=== PATIENT | female | born 1965 | race Caucasian/White ===

== ENCOUNTER 2019-07-13 10:38 | Inpatient (IN) ==
[2019-07-13] MEDS ORDERED: Naloxone 0.4 MG/ML INJ IVP PRN (14:13)
[2019-07-13] MEDS ORDERED: Ondansetron 4 MG/2 ML VIAL IVP PRN (14:13)
--- NOTE | 2019-07-13 14:41 | Internal Med History&Physical ---
Date of Encounter: 07/13/19 Time of Encounter: 14:36 Internal Medicine - H&P: HPI Chief complaint: FALL due to Gerneralized weakness with right elli fracture History of present illness: Ms. Kasper is a 53 year old female with history of bipolar disorder and schizophrenia [facility] because of mechanical fall resulting in fracture of right ankle. Patient is poor historian however the patient states that today the morning she went to the bathroom and she got dizziness and felt weak , lost her balance and fell on right foot. Patient denies chest pain or shortness of breath Patient has no history of coronary artery disease diabetes or high blood pressure. X-ray of ankle showed dry malleolar fracture and malalignment of the ankle mortise Initial labs are normal except platelets count 128 and INR 1.1 Initial troponin negative Patient denies hitting Head. Past Med Surg Social Fam HX - Past Medical History Medical history: asthma, COPD, renal disease, other Additional medical history: gait disturbance Psychiatric history: anxiety, bipolar, depression, PTSD, schizophrenia, other - Past Surgical History Surgical History: appendectomy, breast surgery (Left breast biopsy), cataract (Right), hip replacement (Right), orthopedic, other (Left wrist surgery), other Additional surgical history: R HIP SX S/P FALL. R EYE CATARACT SX. SKIN GRAFT. L BREAST BX. EGD/COLONOSCOPY 06/13/15. TUBAL - Social History Smoking Status: Never smoker Smokeless Tobacco Status: No Alcohol use: none Drug use: none Internal Medicine - H&P: Meds Benztropine [Cogentin] 0.5 mg PO BID 01/03/19 [History] Calcium Carbonate/Vitamin D3 [Oyster Shell Calcium-Vit D Tab] 1 each PO QAM 01/03/19 [History] Citalopram [CeleXA] 20 mg PO DAILY 01/03/19 [History] Divalproex Sodium 500 mg PO BID 01/03/19 [History] Docusate Sodium [Dulcolax Stool Softener] 100 mg PO QAM 01/03/19 [History] Haloperidol [Haldol] 10 mg PO BID PRN 01/03/19 [History] Loratadine [Claritin] 10 mg PO QAM 01/03/19 [History] RisperiDONE [Risperdal] 3 mg PO BID 01/03/19 [History] Ascorbate Calcium [Vitamin C] 500 mg PO DAILY 07/13/19 [History] Ferrous Sulfate [High Potency Iron] 65 mg PO 07/13/19 [History] Haloperidol 5 mg PO QAM 07/13/19 [History] Haloperidol 10 mg PO HS 07/13/19 [History] Hydrochlorothiazide [Microzide] 12.5 mg PO QMWF 07/13/19 [History] Omeprazole [PriLOSEC] 20 mg PO DAILY 07/13/19 [History] Prazosin HCl [Minipress] 2 mg PO HS 07/13/19 [History] Tizanidine HCl [Zanaflex] 4 mg PO TID 07/13/19 [History] Allergy/AdvReac Type Severity Reaction Status Date / Time aspirin [ASA] Allergy Rash Verified 07/13/19 09:02 ibuprofen [From Advil] Allergy Rash Verified 07/13/19 09:02 Penicillins [PCN] Allergy Rash Verified 07/13/19 09:02 All Systems PM: A 10-system review of systems was performed and is negative for pertinent findings except as documented above in the HPI. Review of systems: Review of system: Regarding cardiology respiratory GI endocrine hematology musculoskeletal all negative except for multiple was mentioned in the H&P - Constitutional Exam: Physical examination: Gen.: Patient is alert and oriented, not in respiratory distress or pain HEENT: perrla , EOMI, no thyroid gland enlargement, no neck mass, supple neck Heart: S1 and S2 chriss, normal sinus rhythm, no cardiac murmur no gallop rhythm Chest: Air entry equal bilaterally, clear chest, no wheezing, crackles or crepitation Abdomen: Soft nontender nondistended positive bowel sounds, Extremities: No pitting edema, peripheral pulses palpable, no cyanosis tenderness Neuro: Able to move limbs, no focal neurological deficit. - Other Additional findings: Physical examination: Gen.: Patient is alert and oriented, not in respiratory distress or pain HEENT: perrla , EOMI, no thyroid gland enlargement, no neck mass, supple neck Heart: S1 and S2 chriss, normal sinus rhythm, no cardiac murmur no gallop rhythm Chest: Air entry equal bilaterally, clear chest, no wheezing, crackles or crepitation Abdomen: Soft nontender nondistended positive bowel sounds, Extremities: No pitting edema, peripheral pulses palpable, no cyanosis tenderness Neuro: Able to move limbs, no focal neurological deficit - Assessment and Plan (1) Trimalleolar fracture of ankle, closed Current Visit: No Status: Acute Assessment and plan: Secondary to fall due to generalized weakness Patient denies loss of consciousness Patient has no previous history of coronary artery disease or diabetes Dr. Yarbrough aware of the patient Patient had moderate to high intraoperative risk, check ekg , on telemetry Patient history of bipolar and schizophrenia Noted to have soft blood pressure Check orthostatic blood pressure Continue IV fluid DVT prophylaxis and GI prophylaxis Bowel regimen pain Medication pt/ot once cleared by Phys Ther need SNF do medical recon once confirmed by pharmacist Qualifiers: Encounter type: initial encounter Laterality: right Qualified Code(s): S82.851A - Displaced trimalleolar fracture of right lower leg, initial encounter for closed fracture - Time Spent With Patient Total time spent is greater than 50% in coordination of care (as documented) at patient's floor/unit and/or counseling patient:
[2019-07-13 15:17] LABS: Basophils % 0.2 %; Eosinophils % 0.2 %; Hematocrit 41.4 % (35.3-44.9); Hemoglobin 13.7 g/dL (11.5-15.4); Immature Granulocytes % 0.2 % (0-4); Lymphocytes # 1.6 K/mcL (0.6-4.6); Lymphocytes % 18.4 %; Mean Corpuscular HGB Conc 33.1 g/dL (31.6-35.5); Mean Corpuscular Hemoglobin 33.7 pg (28.0-33.3); Mean Platelet Volume 10.4 fL (9.4-12.4); Monocytes % 11.1 %; Neutrophils # 6.2 K/mcL (1.6-8.9); Platelet Count 133 K/mcL (140-400); Red Blood Count 4.06 M/mcL (3.82-4.97); Red Cell Distribution Width 12.4 % (11.5-14.5); Segmented Neutrophils % 69.9 %; White Blood Count 8.8 K/mcL (4.3-11.1)
[2019-07-13 15:38] LABS: Alanine Aminotransferase 6 Units/L (7-52); Albumin 3.3 g/dL (3.5-5.7); Albumin/Globulin Ratio 1.5 (1.1-2.2); Alkaline Phosphatase 60 Units/L (34-104); Aspartate Amino Transferase 10 Units/L (13-39); BUN/Creatinine Ratio 20 (6-26); Bilirubin,Total 0.6 mg/dL (0.3-1.0); Blood Urea Nitrogen 14 mg/dL (6-20); Carbon Dioxide 28 mEq/L (23-29); Chloride 107 mEq/L (98-107); Cholesterol 136 mg/dL (< 200); Globulin 2.2 g/dL (2.4-3.5); Glucose 106 mg/dL (70-105); HDL Cholesterol 46 mg/dL (40-59); LDL Cholesterol,Calculated 74 mg/dL (0-99); Magnesium 1.6 mg/dL (1.6-2.6); Osmolality,Calculated 289 (280-300); Potassium 3.7 mEq/L (3.5-5.1); Sodium 139 mEq/L (136-145); Total Protein 5.5 g/dL (6.4-8.9); Triglycerides 80 mg/dL (< 150); eGFR For African Americans > 60 (> 60); eGFR For Non-African Americans > 60 (> 60)
--- NOTE | 2019-07-13 16:20 | Podiatry Consult Note ---
Date of Encounter: 07/13/19 Time of Encounter: 15:50 Assessment and Plan (1) Trimalleolar fracture of ankle, closed Current visit: No Status: Acute Assessment: -Ecchymosis and edema noted right ankle -PT/DP pulses per Doppler -Movement of toes noted -No tenting or blistering noted -Right ankle x-ray showed evidence of a trimalleolar fracture and malalignment of the ankle mortise seen on on the lateral view Plan: -Keep extremity elevated with heel off of bed at all times -CT right ankle ordered per Dr. Moon -EKG pending -Will discuss with attending to determine if cardiac clearance is needed prior to surgery -If cleared OR tomorrow or next day with Dr. Moon -NPO after midnight The posterior splint was removed to check for adequate circulation. Pulses were obtained with Doppler and splint reapplied using cast padding, stockinette, posterior splint, cast padding, and [place]. Patient tolerated well. Patient and chlorinator operator instructed to report any pain without relief of medication, swelling, or discoloration of toes. Qualifiers: Encounter type: initial encounter Laterality: right Qualified Code(s): S82.851A - Displaced trimalleolar fracture of right lower leg, initial encounter for closed fracture History of Present Illness HPI: Ms. Kasper is a 53 year old female who presents to the hospital for a right ankle fracture status post fall during the night. Patient was transferred from [facility] Emergency Room (ER). Patient does have a past medical history of asthma, COPD, renal disease, schizophrenia, and bipolar. She is a resident in a senior living. Patient reports she went to the restroom last night and became lightheaded and dizzy when returning to bed and she fell. She denies any loss of consciousness, chest pain, or shortness of breath. She did complain of pain right ankle and her chlorinator operator this am noticed the swelling and bruising in her ankle and had her go to the ER for evaluation. A right ankle x-ray was taken and showed evidence of a trimalleolar fracture and malalignment of the ankle mortise seen on on the lateral view. Podiatry was consulted due to the fracture of the right ankle. Patient denies any history of tobacco, alcohol, or illicit drug use. Past Med Surg Social Fam HX - Past Medical History Medical history: asthma, COPD, renal disease, other Additional medical history: gait disturbance Psychiatric history: anxiety, bipolar, depression, PTSD, schizophrenia, other - Past Surgical History Surgical History: appendectomy, breast surgery (Left breast biopsy), cataract (Right), hip replacement (Right), orthopedic, other (Left wrist surgery), other Additional surgical history: R HIP SX S/P FALL. R EYE CATARACT SX. SKIN GRAFT. L BREAST BX. EGD/COLONOSCOPY 06/13/15. TUBAL - Social History Smoking Status: Never smoker Smokeless Tobacco Status: No Alcohol use: none Drug use: none Medications and Allergies Benztropine [Cogentin] 0.5 mg PO BID 01/03/19 [History] Calcium Carbonate/Vitamin D3 [Oyster Shell Calcium-Vit D Tab] 1 each PO QAM 01/03/19 [History] Citalopram [CeleXA] 20 mg PO DAILY 01/03/19 [History] Docusate Sodium [Dulcolax Stool Softener] 100 mg PO QAM 01/03/19 [History] Haloperidol [Haldol] 10 mg PO BID PRN 01/03/19 [History] Loratadine [Claritin] 10 mg PO QAM 01/03/19 [History] RisperiDONE [Risperdal] 3 mg PO BID 01/03/19 [History] Ascorbate Calcium [Vitamin C] 500 mg PO DAILY 07/13/19 [History] Divalproex Sodium [Depakote] 500 mg PO BID 07/13/19 [History] Ferrous Sulfate 325 mg PO DAILY 07/13/19 [History] Haloperidol 5 mg PO QAM 07/13/19 [History] Haloperidol 10 mg PO HS 07/13/19 [History] Hydrochlorothiazide [Microzide] 12.5 mg PO QMWF 07/13/19 [History] OLANZapine [Zyprexa] 10 mg PO DAILY PRN 07/13/19 [History] Omeprazole [PriLOSEC] 20 mg PO DAILY 07/13/19 [History] Prazosin HCl [Minipress] 2 mg PO HS 07/13/19 [History] Tizanidine HCl [Zanaflex] 4 mg PO TID 07/13/19 [History] traZODone [TraZODone] 100 mg PO HS PRN 07/13/19 [History] Allergy/AdvReac Type Severity Reaction Status Date / Time aspirin [ASA] Allergy Rash Verified 07/13/19 09:02 ibuprofen [From Advil] Allergy Rash Verified 07/13/19 09:02 Penicillins [PCN] Allergy Rash Verified 07/13/19 09:02 All Systems Reviewed: The remainder of the systems were reviewed and are negative Review of systems: As per HPI - Cardiovascular Cardiovascular: no chest pain, no dyspnea - Respiratory Respiratory: no cough, no dyspnea, no dyspnea on exertion Physical Exam - Constitutional Vitals: Temp Pulse Resp BP Pulse Ox 97.9 F 84 16 98/67 94 07/13/19 15:40 07/13/19 15:40 07/13/19 15:40 07/13/19 15:44 07/13/19 15:40 Exam: Constitutional: Alert and oriented x 3, no acute distress noted, well nourished female Vascular: DP/PT pulse obtained with Doppler, skin warm from tibia to toes, cap refill less than 3 seconds Neurological: Sensation intact, normal plantar reflex Dermatological: Ecchymosis and edema noted right lower extremity, ankle, and foot. No tenting noted. No blistering noted. No open areas noted. Musculoskeletal: Movement of toes noted but sluggish due to pain, normal muscle tone Results - Labs Result Diagrams: 07/13/19 14:38 07/13/19 14:38 Labs: Abnormal lab results MCV 102.0 fL (83.0-100.0) H 07/13/19 14:38 MCH 33.7 pg (28.0-33.3) H 07/13/19 14:38 Plt Count 133 K/mcL (140-400) L 07/13/19 14:38 Glucose 106 mg/dL (70-105) H 07/13/19 14:38 AST 10 Units/L (13-39) L 07/13/19 14:38 ALT 6 Units/L (7-52) L 07/13/19 14:38 Serum Total Protein 5.5 g/dL (6.4-8.9) L 07/13/19 14:38 Albumin 3.3 g/dL (3.5-5.7) L 07/13/19 14:38 Globulin 2.2 g/dL (2.4-3.5) L 07/13/19 14:38 H & H 07/13/19 Range/Units 14:38 Hgb 13.7 (11.5-15.4) g/dL Hct 41.4 (35.3-44.9) % All other labs normal. Consult Discharge Plan - Plan Referrals: Vinicio Craig MD [Primary Care Provider] -
[2019-07-13] MEDS: 0.9 % Sodium Chloride 1,000 ML IVC SCH (17:10)
[2019-07-13] MEDS: Acetaminophen 325 MG TABLET PO PRN (22:06)
[2019-07-14] MEDS: *HR* Enoxaparin 40 MG/0.4 ML SYRINGE SQ SCH (05:51)
[2019-07-14] MEDS: 0.9 % Sodium Chloride 1,000 ML IVC SCH (05:55)
--- NOTE | 2019-07-14 10:46 | Internal Med Progress Note ---
Hospitalist Progress Note - Encounter Date of Encounter: 07/14/19 Time of Encounter: 10:43 - Subjective Interval History: She was seen and examined today at bedside. Patient reports that she is doing well. Patient complaining of on and off right ankle pain. By CT patient found to have a fracture on her right ankle. Podiatry CONSULT. PODIATRY CONSIDERING POSSIBLE SURGERY. WE WILL CONTINUE TO FOLLOW PODIATRY RECOMMENDATION. - Exam Vitals: Temp Pulse Resp BP Pulse Ox 98.5 F 78 16 108/63 94 07/14/19 06:43 07/14/19 06:43 07/14/19 06:43 07/14/19 06:43 07/14/19 06:43 Exam: Physical examination: Gen.: Patient is alert and oriented, not in respiratory distress or pain HEENT: perrla , EOMI, no thyroid gland enlargement, no neck mass, supple neck Heart: S1 and S2 chriss, normal sinus rhythm, no cardiac murmur no gallop rhythm Chest: Air entry equal bilaterally, clear chest, no wheezing, crackles or crepitation Abdomen: Soft nontender nondistended positive bowel sounds, Extremities: Dressing properly placed on the right ankle. Sensation and capillary refill are within normal limits distal to the joint. Patient is able to move right toes. Neuro: Able to move limbs, no focal neurological deficit. - Assessment and Plan (1) Trimalleolar fracture of ankle, closed Current Visit: No Status: Acute Assessment and Plan: Patient presented to the hospital status post mechanical fall. Upon CT patient found to have trimalleolar fracture of right ankle closed. Podiatry CONSULT. CONTINUE PAIN MANAGEMENT. WE WILL FOLLOW PODIATRY RECOMMENDATION REGARDING THE SURGERY. WE WILL CONTINUE TO MONITOR PATIENT. - Time Spent with Patient Total time spent is greater than 50% in coordination of care (as documented) at patient's floor/unit and/or counseling patient: 25 - 35 minutes Plan of Care Discussed with: patient Internal Medicine: Result - Labs CBC & Chem 7: 07/13/19 14:38 07/13/19 14:38 Labs: Short CBC 07/13/19 Range/Units 14:38 WBC 8.8 (4.3-11.1) K/mcL Hgb 13.7 (11.5-15.4) g/dL Hct 41.4 (35.3-44.9) % Plt Count 133 L (140-400) K/mcL Neutrophils # 6.2 (1.6-8.9) K/mcL BMP 07/13/19 14:38 Sodium 139 Potassium 3.7 Chloride 107 Carbon Dioxide 28 BUN 14 Creatinine 0.71 Glucose 106 H Calcium 9.0 Cardiac Enzymes 07/13/19 Range/Units 19:07 Troponin I < 0.03 (< 0.04) ng/mL Liver Function 07/13/19 Range/Units 14:38 Total Bilirubin 0.6 (0.3-1.0) mg/dL AST 10 L (13-39) Units/L ALT 6 L (7-52) Units/L Alkaline Phosphatase 60 (34-104) Units/L Albumin 3.3 L (3.5-5.7) g/dL - Impressions Impressions Ankle CT 07/13/19 15:50 IMPRESSION: Trimalleolar fractures with ligamentous injury. D/ / 07/13/2019 17:01:31 Forrest Al MD / aldair Interpreting Provider: Forrest Al MD Consult Discharge Plan - Plan Referrals: Vinicio Craig MD [Primary Care Provider] - (1) Trimalleolar fracture of ankle, closed Qualifiers: Encounter type: initial encounter Laterality: right Qualified Code(s): S82.851A - Displaced trimalleolar fracture of right lower leg, initial encounter for closed fracture
[2019-07-14] MEDS: Acetaminophen 325 MG TABLET PO PRN (11:45)
--- NOTE | 2019-07-14 12:48 | Podiatry Progress Note ---
Date of Encounter: 07/14/19 Time of Encounter: 11:15 - Assessment and Plan (1) Trimalleolar fracture of ankle, closed Current Visit: No Status: Acute Assessment: -Posterior splint dry and intact, no strike through noted -Movement of toes noted -Right ankle x-ray showed evidence of a trimalleolar fracture and malalignment of the ankle mortise seen on on the lateral view -CT shows trimalleolar fracture with ligamentous injury Plan: -Keep extremity elevated with heel off of bed at all times -Dr. Moon to confirm clearance for surgery tomorrow -ORIF tomorrow with Dr. Moon -NPO after midnight -Nature of the procedure, risks versus benefits, potential complications, consequences of surgery, and condition discussed. All questions and concerns addressed. Consent signed and placed in chart. -Will continue to monitor Qualifiers: Encounter type: initial encounter Laterality: right Qualified Code(s): S82.851A - Displaced trimalleolar fracture of right lower leg, initial encounter for closed fracture Subjective Interval history: Patient is alert and oriented x 3, no acute distress noted. Patient report right lower extremity pain rates as 7, but states is tolerable. She denies any chest pain, shortness of breath, or calf pain. She denies any fever, chills, n/v/d. Objective - Vital Signs Vital Signs: Vital Signs Temp Pulse Resp BP BP BP BP 07/14/19 11:10 98.1 F 82 18 134/75 07/14/19 06:43 98.5 F 78 16 108/63 07/14/19 03:14 99.1 F 73 16 97/64 07/13/19 23:40 98.3 F 92 15 106/55 07/13/19 19:14 98.3 F 98 15 119/79 07/13/19 15:44 98/67 95/71 92/65 07/13/19 15:40 97.9 F 84 16 113/75 Pulse Ox 07/14/19 11:10 95 07/14/19 06:43 94 07/14/19 03:14 95 07/13/19 23:40 92 07/13/19 19:14 93 07/13/19 15:44 07/13/19 15:40 94 Intake and Output 07/13/19 07/14/19 07/14/19 23:59 07:59 15:59 Intake Total 0 / 0 1000 / 1400 400 / 1400 Output Total 0 / 0 Balance 0 / 0 1000 / 1400 400 / 1400 Intake: IV Fluids 1000 / 1400 400 / 1400 0.9 % Sodium Chloride 1,000 ML 1000 / 1400 400 / 1400 @ 75 mls/hr IVC .[id number] MJ Rx #:[id number] Oral 0 / 0 0 / 0 Output: Urine 0 / 0 Other: # Urine Diapers 0 Weight 95.7 kg Blood Glucose* 113 92 93 Patient Weight 07/14/19 23:59 Weight 95.7 kg - Exam Exam: Constitutional: Alert and oriented x 3, no acute distress noted Vascular: Cap refill less than 3 seconds to exposed digits, no swelling above or below splint, skin warm Constitutional: Posterior splint dry and intact, no strike through noted Neurological: Sensation intact Musculoskeletal: Movement of toes noted - Lab Result Diagrams: 07/13/19 14:38 07/13/19 14:38 Labs: Abnormal lab results MCV 102.0 fL (83.0-100.0) H 07/13/19 14:38 MCH 33.7 pg (28.0-33.3) H 07/13/19 14:38 Plt Count 133 K/mcL (140-400) L 07/13/19 14:38 Glucose 106 mg/dL (70-105) H 07/13/19 14:38 POC Glucose 113 mg/dL (70-99) H 07/13/19 17:53 AST 10 Units/L (13-39) L 07/13/19 14:38 ALT 6 Units/L (7-52) L 07/13/19 14:38 Serum Total Protein 5.5 g/dL (6.4-8.9) L 07/13/19 14:38 Albumin 3.3 g/dL (3.5-5.7) L 07/13/19 14:38 Globulin 2.2 g/dL (2.4-3.5) L 07/13/19 14:38 Consult Discharge Plan - Plan Referrals: Vinicio Craig MD [Primary Care Provider] -
[2019-07-14 13:12] LABS: Bilirubin,Urine Small (Negative); Blood,Urine Negative (Negative); Clarity,Urine Clear (Clear); Color,Urine Dark Yellow (Yellow); Glucose,Urine (UA) Normal (Normal); Ketones,Urine 15 mg/dL (Negative); Leukocyte Esterase,Urine Small (Negative); Nitrite,Urine Negative (Negative); Protein,Urine Trace mg/dL (Neg-Trace); Specific Gravity,Urine > 1.030 (1.010-1.025); Urobilinogen,Urine Normal (Normal)
[2019-07-14 13:14] LABS: Hyaline Casts,Urine None Seen per lpf (None-Few); Squamous Epithelial Cell,Urine Many per lpf (None-Few)
[2019-07-14 14:20] LABS: Bacteria,Urine Few per hpf (None-Few)
[2019-07-14] MEDS ORDERED: traZODone 50 MG TABLET PO PRN (14:26)
[2019-07-14] MEDS ORDERED: Morphine Sulfate 2 MG/ML SYRINGE IVP PRN (15:22)
[2019-07-14] MEDS ORDERED: *HR* OxyCODONE Immed Rel 5 MG TABLET PO PRN (15:35)
--- NOTE | 2019-07-14 16:33 | Electrocardiograph Report ---
[place] [id number] Test Date: 2019-07-13 Pat Name: Kay Kasper Department: 115 Room: 3A32 Gender: F Direct Sales Representative: : [id number] Requested By: Riley Salter Order Number: [id number] Reading MD: Andrés Pavon Measurements Intervals Starbuck Rate: 87 P: 30 CO: 143 QRS: 5 QRSD: 122 T: -5 QT: 397 QTc: 442 Interpretive Statements SINUS RHYTHM INDETERMINATE AXIS RIGHT BUNDLE BRANCH BLOCK Electronically Signed On 07-14-2019 16:31:30 EDT by Andrés Pavon
--- NOTE | 2019-07-14 19:01 | Anesthesia Evaluation PreOp ---
Date of Encounter: 07/14/19 Time of Encounter: 20:15 - Past History Planned Operation: ORIF R-foot Cardiac History: Denies any Significant Hx Pulmonary History: Asthma, COPD BILINGUAL SALES REPRESENTATIVE History: Other (BiPolar disorder & Schizophrenia. PTSD. Mild MRDD??) Other Medical History: Renal, Other (Tri-malleolar ankle Fx) Anesthesia History: No Prior Anesthetic Complications, Past Anesthesia (Appy, L- breast Bx, R-cataract, R-Hip replacmeent, L-wrist surgery, EGD/Colon, Tubal) Alcohol Use: none Drug use: none Medications and Allergies Benztropine [Cogentin] 0.5 mg PO BID 01/03/19 [History] Calcium Carbonate/Vitamin D3 [Oyster Shell Calcium-Vit D Tab] 1 each PO QAM 01/03/19 [History] Citalopram [CeleXA] 20 mg PO DAILY 01/03/19 [History] Docusate Sodium [Dulcolax Stool Softener] 100 mg PO QAM 01/03/19 [History] Haloperidol [Haldol] 5 mg PO BID PRN 01/03/19 [History] Loratadine [Claritin] 10 mg PO QAM 01/03/19 [History] RisperiDONE [Risperdal] 3 mg PO BID 01/03/19 [History] Ascorbate Calcium [Vitamin C] 500 mg PO DAILY 07/13/19 [History] Divalproex Sodium [Depakote] 500 mg PO BID 07/13/19 [History] Ferrous Sulfate 325 mg PO DAILY 07/13/19 [History] Haloperidol 5 mg PO QAM 07/13/19 [History] Haloperidol 10 mg PO HS 07/13/19 [History] Hydrochlorothiazide [Microzide] 12.5 mg PO MOWEFR 07/13/19 [History] OLANZapine [Zyprexa] 10 mg PO DAILY PRN 07/13/19 [History] Omeprazole [PriLOSEC] 20 mg PO DAILY 07/13/19 [History] Prazosin HCl [Minipress] 2 mg PO HS 07/13/19 [History] Tizanidine HCl [Zanaflex] 4 mg PO TID 07/13/19 [History] traZODone [TraZODone] 100 mg PO HS PRN 07/13/19 [History] Allergy/AdvReac Type Severity Reaction Status Date / Time aspirin [ASA] Allergy Rash Verified 07/13/19 09:02 ibuprofen [From Advil] Allergy Rash Verified 07/13/19 09:02 Penicillins [PCN] Allergy Rash Verified 07/13/19 09:02 - Meds/Allergy Pre-op Review Medications Reviewed: Yes Allergies Reviewed: Yes Beta Blockers on Current Med List: No Anesthesia Results - Labs 07/13/19 14:38 07/13/19 14:[address] 07/13/19 15:50 IMPRESSION: Trimalleolar fractures with ligamentous injury. D/ / 07/13/2019 17:01:31 Forrest Al MD / aldair Interpreting Provider: Forrest Al MD - Imaging EKG: report reviewed (87bpm - SINUS RHYTHM INDETERMINATE AXIS RIGHT BUNDLE BRANCH BLOCK Electronically Signed On 07-14-2019 16:31:30 EDT by Andrés Pavon) Anesthesia Exam Vital Signs Temp Pulse Resp BP Pulse Ox 07/14/19 19:01 98.2 F 85 18 93/61 95 07/14/19 15:41 98.2 F 102 18 132/63 96 07/14/19 11:10 98.1 F 82 18 134/75 95 07/14/19 06:43 98.5 F 78 16 108/63 94 07/14/19 03:14 99.1 F 73 16 97/64 95 07/13/19 23:40 98.3 F 92 15 106/55 92 07/13/19 19:14 98.3 F 98 15 119/79 93 Intake and Output 07/14/19 07/14/19 07/14/19 07:59 15:59 23:59 Intake Total 1000 / 2120 400 / 2120 720 / 2120 Output Total 450 / 450 Balance 1000 / 1670 -50 / 1670 720 / 1670 Intake: IV Fluids 1000 / 2000 400 / 2000 600 / 2000 0.9 % Sodium Chloride 1,000 ML 1000 / 2000 400 / 2000 600 / 2000 @ 75 mls/hr IVC .[id number] MJ Rx #:[id number] Oral 0 / 120 120 / 120 Output: Urine 450 / 450 Other: Meal Dinner Percent of Meal Consumed 30% # Urine Diapers 0 Weight 95.7 kg Blood Glucose* 92 93 Patient Weight 07/14/19 23:59 Weight 95.7 kg Height: 5'3" Weight: 210# BMI = 37 - HEENT Pupil (Motor): Pupils equal, EOMI Mallampati: III Teeth: Missing (multiple missing), Poor dentition (very poor dentition) Oral Opening: Greater than 3 - BILINGUAL SALES REPRESENTATIVE LOC: Oriented BILINGUAL SALES REPRESENTATIVE Motor: Normal RUE, Normal LUE, Normal LLE, Normal Face, Deficit RLE BILINGUAL SALES REPRESENTATIVE Sensory: Normal: RUE, LUE, LLE, Face, Deficit: RLE - Cardiac Rhythm: Regular Murmur: None - Pulmonary Breath Sounds: bilateral Clear Respiratory Effort: Symmetrical Anesthesia Assess/Plan ASA Score: 3 Level of consciousness: Cooperative, Oriented, Tranquil Anesthetic Plan: General, Regional Nerve Block Regional Nerve Block Plan: Popliteal ( - if OK w/McFerren) Monitoring Plan: Standard Monitors Recovery Plan: PACU Anes Supervising Prov Stmt: Pt seen/evaluated, R&B discussed, questions answered and consent obtained. Gela Dickens MD
[2019-07-14] MEDS: RisperiDAL 3 MG TABLET PO SCH (21:23)
[2019-07-14] MEDS: Divalproex (12 HR) 250 MG TABLET PO SCH (21:23)
[2019-07-15 05:06] LABS: Hematocrit 33.4 % (35.3-44.9); Immature Granulocytes % 0.6 % (0-4); Lymphocytes % 36.4 %; Mean Corpuscular HGB Conc 32.6 g/dL (31.6-35.5); Mean Corpuscular Hemoglobin 33.2 pg (28.0-33.3); Mean Corpuscular Volume 101.8 fL (83.0-100.0); Mean Platelet Volume 9.9 fL (9.4-12.4); Platelet Count 112 K/mcL (140-400); Red Blood Count 3.28 M/mcL (3.82-4.97); Red Cell Distribution Width 12.4 % (11.5-14.5); Segmented Neutrophils % 44.4 %; White Blood Count 5.1 K/mcL (4.3-11.1)
[2019-07-15 05:07] LABS: Basophils % 0.6 %; Eosinophils # 0.1 K/mcL (0.0-0.6); Eosinophils % 1.6 %; Hemoglobin 10.9 g/dL (11.5-15.4); Lymphocytes # 1.8 K/mcL (0.6-4.6); Monocytes # 0.8 K/mcL (0.0-1.3); Monocytes % 16.4 %; Neutrophils # 2.3 K/mcL (1.6-8.9)
[2019-07-15 05:24] LABS: BUN/Creatinine Ratio 17 (6-26); Blood Urea Nitrogen 10 mg/dL (6-20); Calcium 8.5 mg/dL (8.6-10.3); Carbon Dioxide 27 mEq/L (23-29); Chloride 110 mEq/L (98-107); Glucose 98 mg/dL (70-105); Osmolality,Calculated 293 (280-300); Potassium 3.5 mEq/L (3.5-5.1); Sodium 142 mEq/L (136-145); eGFR For African Americans > 60 (> 60); eGFR For Non-African Americans > 60 (> 60)
[2019-07-15] MEDS: *HR* Enoxaparin 40 MG/0.4 ML SYRINGE SQ SCH (06:25)
[2019-07-15] MEDS ORDERED: Ropivacaine/PF 0.5% 30 ML VIAL ONE (10:35)
[2019-07-15] MEDS ORDERED: ROPIVACAINE/PF/NS 0.25% 1 EACH SYRINGE INTRAART ONE (10:35)
[2019-07-15] MEDS ORDERED: Lidocaine -MPF 2% 2 ML VIAL ONE (10:49)
[2019-07-15] MEDS ORDERED: *HR* Propofol 200 MG/20 ML VIAL IVP ONE (10:49)
[2019-07-15] MEDS ORDERED: *HR* Midazolam HCl 2 MG/2 ML VIAL ONE (10:49)
[2019-07-15] MEDS ORDERED: *HR* FentaNYL (PF) 100 MCG/2 ML VIAL ONE ×2 (10:49→12:18)
[2019-07-15] MEDS ORDERED: Clindamycin 600 MG in D5% in Water 50 ML IVPB ONE (11:47)
[2019-07-15] MEDS ORDERED: Clindamycin 900 MG/50 ML 900 MG/50 ML IV.SOLN IVPB ONE (11:47)
--- NOTE | 2019-07-15 12:21 | Anesthesia Procedures ---
Date of Encounter: 07/15/19 Time of Encounter: 11:30 Procedures: Anesthesia - Nerve Block Procedure Date: 07/15/19 Time: 11:30 Allergies/Adv Reactions: ASA, ibuprofen, PCN Pre-op Diagnosis: R ankle fracture Surgical Procedure: ORIF R ankle Checklist: Correct Patient Identifier, Correct procedure, History checked Correct side: Right Blood Thinner: No Monitor Applied: EKG, BP, Pulse Oximetry Supplemental Oxygen via Nasal Cannula (L/min): 4 Sedation: Versed (mg): 2 Sedation: Fentanyl (mcg): 100 Indication: Post Op Analgesia Pre-op Neuro Deficits: No Block Type: Popliteal, Other (Adductor Canal N. block) Sterile Technique: Yes Ultrasound used: Yes Anatomy identified: Yes Visual spread of Local: Yes Neuro Stimulation: Yes Nerve Stimulator Range: 0.2 - 0.4 mA Blood on Needle Aspiration: No Smooth Injection of Local: Yes Pain with Injection of Local: No Prep: Chlorhexadine Needle: 21 x 100 mm Stimuplex Local: Ropivacaine (30mL of 0.5% ropi + 4mg dexamethasone for popliteal n. block; 20mL of 0.25% ropivicaine + 4mg dexamethasone for adductor canal n. block) Number of Attempts: 1 Complications: None/effective block Vitals: see patient holding vital signs notes
--- NOTE | 2019-07-15 12:31 | Internal Med Progress Note ---
Hospitalist Progress Note - Encounter Date of Encounter: 07/15/19 Time of Encounter: 12:29 - Subjective Interval History: Patient was seen and examined today. Patient reports intermittent pain in the right ankle. Patient has a trimalleolar fracture of right ankle status post mechanical fall. Podiatry consult. Patient will undergo surgery today for her trimalleolar fracture of right ankle. Patient has been nothing by mouth after midnight. We will continue to monitor. - Exam Vitals: Temp Pulse Resp BP Pulse Ox 98.4 F 83 15 123/65 100 07/15/19 07:48 07/15/19 11:38 07/15/19 07:48 07/15/19 11:38 07/15/19 11:38 Exam: Physical examination: Gen.: Patient is alert and oriented, not in respiratory distress or pain HEENT: perrla , EOMI, no thyroid gland enlargement, no neck mass, supple neck Heart: S1 and S2 chriss, normal sinus rhythm, no cardiac murmur no gallop rhythm Chest: Air entry equal bilaterally, clear chest, no wheezing, crackles or crepitation Abdomen: Soft nontender nondistended positive bowel sounds, Extremities: Dressing properly placed on the right ankle. Sensation and capillary refill are within normal limits distal to the joint. Patient is able to move right toes. Neuro: Able to move limbs, no focal neurological deficit. - Assessment and Plan (1) Trimalleolar fracture of ankle, closed Current Visit: No Status: Acute Assessment and Plan: Patient found to have trimalleolar fracture of right ankle status post mechan ical fall. Podiatry CONSULT. Patient is scheduled for ORIF of right ankle for trimalleolar fracture. We will continue to monitor after surgery. (2) COPD (chronic obstructive pulmonary disease) Current Visit: Yes Status: Acute Assessment and Plan: We will continue home medication. (3) Depression Current Visit: Yes Status: Acute Assessment and Plan: We will continue home medication. Patient denies any suicidal ideation and homicidal ideation. (4) Anemia Current Visit: No Status: Chronic Assessment and Plan: We will continue to monitor hemoglobin today 10.9 - Time Spent with Patient Total time spent is greater than 50% in coordination of care (as documented) at patient's floor/unit and/or counseling patient: 25 - 35 minutes Plan of Care Discussed with: patient Internal Medicine: Result - Labs CBC & Chem 7: 07/15/19 04:45 07/15/19 04:45 Labs: Short CBC 07/15/19 Range/Units 04:45 WBC 5.1 (4.3-11.1) K/mcL Hgb 10.9 L D (11.5-15.4) g/dL Hct 33.4 L (35.3-44.9) % Plt Count 112 L (140-400) K/mcL Neutrophils # 2.3 (1.6-8.9) K/mcL BMP 07/15/19 04:45 Sodium 142 Potassium 3.5 Chloride 110 H Carbon Dioxide 27 BUN 10 Creatinine 0.59 L Glucose 98 Calcium 8.5 L Urine 07/14/19 Range/Units 12:59 Urine Color Dark Yellow (Yellow) Urine Clarity Clear (Clear) Urine pH 6.0 (5.0-8.0) pH Units Ur Specific [place] > 1.030 H (1.010-1.025) Urine Protein Trace (Neg-Trace) mg/dL Urine Glucose (UA) Normal (Normal) mg/dL Consult Discharge Plan - Plan Referrals: Vinicio Craig MD [Primary Care Provider] - (1) Trimalleolar fracture of ankle, closed Qualifiers: Encounter type: initial encounter Laterality: right Qualified Code(s): S82.851A - Displaced trimalleolar fracture of right lower leg, initial encounter for closed fracture (2) COPD (chronic obstructive pulmonary disease) Qualifiers: COPD type: unspecified COPD Qualified Code(s): J44.9 - Chronic obstructive pulmonary disease, unspecified (4) Anemia Qualifiers: Anemia type: unspecified type Qualified Code(s): D64.9 - Anemia, unspecified
[2019-07-15] MEDS ORDERED: Dexamethasone 4 MG/ML VIAL ONE (12:57)
[2019-07-15] MEDS ORDERED: Ondansetron 4 MG/2 ML VIAL ONE (12:57)
[2019-07-15] MEDS ORDERED: Clindamycin 600 MG/50 ML 600 MG/50 ML IV.SOLN IVPB ONE ×2 (13:00→17:41)
--- NOTE | 2019-07-15 15:43 | Orthopedic Operative Note ---
Date of procedure: 07/15/19 Pre-op diagnosis: right trimalleolar ankle fracture, syndesmosis injury Post-op diagnosis: same Procedure: 07/15/19 15:42 1. Open reduction with internal fixation trimalleolar ankle fracture with repair of posterior malleolus, right ankle 2. Repair syndesmosis, right ankle Implants: Synthes 7 hole posterolateral fibula plate Synthes 3 hole hook plate Synthes 1cc DBM 2.7mm locking screw x5 2.7mm cortical screw x2 3.5mm cortical screw x6 3.5mm locking screw x2 4.0mm cannulated screw with washer x2 Complications: None Anesthesia: GETA, regional Surgeon: Joel Moon Was there an assistant county engineer present: No Estimated blood loss (cc): 25 Tourniquet Time (Minutes): 167 Specimen: None Condition: stable Disposition: floor Procedure in Detail: 07/15/19 17:03 INDICATIONS AND CONSENT Ms. Kasper is a 53 year old female who originally presented with right ankle pain and injury from a fall while walking in her detention. Radiographs and CT scan indicated a minimally displaced trimalleolar ankle fracture with comminution of the fibula and a large posterior malleolus fragment. Given the radiographic findings, surgical intervention was warranted. The patient elected to proceed with open reduction with internal fixation of the ankle fracture. We discussed the above procedures in detail. This included a discussion on the indications, contraindications, and possible complications including but not limited to: infection, non-healing wound, pain, swelling, bleeding, blood clots, heart complications, nerve injury, tendon injury vascular injury, loss of limb, loss of life, non-union, malunion, arthritis, hardware failure, and need for further surgery. We also reviewed the expected post operative course, including a discussion on the non-weightbearing status after this procedure. She related understanding of our discussion regarding this surgery. All questions were answered to her satisfaction, and a proper written informed consent was obtained, signed, and placed in the chart. No guarantees were given, stated or implied, as to the outcome of this procedure. PROCEDURE IN DETAIL The patient was seen in the pre-operative holding area by Anesthesia, where she was consented for General Anesthesia with adductor canal block. The popliteal fossa adductor canal blocks were performed under ultrasound guidance by Anesthesia in the pre-operative holding area. The patient was then brought back to the operative suite and placed on the operating room table in the lateral position. A sign-in was performed. General anesthesia was then initiated per Anesthesia protocol. A well-padded pneumatic right thigh tourniquet was then placed. Next, the right lower leg was scrubbed, prepped, and draped in the usual aseptic manner. A [place] Time-Out was performed, and all parties in the room agreed. Next, an Esmarch was used to exsanguinate the right foot. The pneumatic thigh tourniquet was inflated to 300 mmHg. Attention was then directed to the right posterolateral leg where an approximate 10 cm linear incision was made over the posterior aspect of the distal fibula and extending just distal to the tip of the lateral malleolus. Hematoma and signs of post-traumatic injury were evident. The hematoma was evacuated. The incision was carried down to the level of bone in anatomic layers, paying particular attention to protect and retract all vital neurovascular structures. With the incision down to bone, the fracture site was identified and noted to be a displaced and severely comminuted, spiral oblique fracture. A silva elevator was used to elevate the periosteum both proximal and distal to the fracture site prior to plate fixation. The wound was flushed with copious amounts of sterile saline. The fracture was reduced and stabilized utilizing point to point bone clamps. The fibula was held out to appropriate anatomic length, confirmed and verified under fluoroscopy. Two 2.7mm lag screws, by AO technique, were thrown obliquely and perpendicular to the fracture site of the largest of the fragments, one anterior to posterior and one posterior to anterior for appropriate compression and stability. Next a posterolateral fibula plate was placed for added stability across the fracture sites which was fixated using three 3.5mm cortical screws, two 3.5mm locking screws proximally, and five 2.7mm locking screws distally. Stability at the [facility] site was noted both clinically and under fluoroscopy with maintenance of reduction and religious of fibular length. There was a significant osseous defect from the comminution that was filled with 1cc of DBM. An additional 3.5mm cortical screw was then placed through an open hole at the level of the syndesmosis to further fixate the tibia-fibula due to the comminution at the level of the syndesmosis, indicating injury to the ligament. The tourniquet was released for 15 minutes and was re-inflated to 300mmHg. A reduction clamp was used to reduce the posterior malleolus fracture, then two 4.0mm cannulated screws with washers were placed from posterior to anterior to fixate the fragment. There was improvement in anatomic alignment of the ankle mortise on the anterior-posterior and lateral views of the ankle via fluoroscopy. Our attention was then directed to the medial malleolus where a curvilinear incision was made. The incision was carried deep to the level of bone paying careful attention to retract neurovascular and tendons. A 3 hole hook plate was then placed over the medial malleolus and fixated using two 3.5mm cortical screws proximal to the fracture drilled eccentrically to compress the fracture. Adequate reduction and hardware fixation was confirmed under fluoroscopy. Deltoid and syndesmosis stability was confirmed under fluoroscopy as the ankle joint was stressed with no widening appreciated. The wounds were then flushed with copious amounts of normal sterile saline. Next, deep and subcutaneous tissues were re-approximated using 2-0 Vicryl and 3-0 Vicryl and the skin was re-approximated under minimal tension using skin clemente. A dry, sterile dressing was then applied, which consisted of: xeroform, 4x4's, Kerlix fluffs, ABDs, and Kerlix roll. The right thigh tourniquet was then deflated, and a proper hyperemic response was noted to the digits on the right foot. Capillary refill time of the toes on the right foot was also noted to be brisk at this time. A well-padded posterior splint with sugar tong was applied with the foot 90 degrees relative to the lower leg. The posterior splint was then secured to the foot and leg using an [place] bandage. A sign-out was performed. The patient tolerated anesthesia and the procedure well, and was transferred to PAC-U with vital signs stable and vascular status intact to the right lower extremity. Needle and sponge counts were correct X 2 at the end of the case. Dr. Joel Moon was present, scrubbed, and participated in all vital aspects of the procedure. After a brief stay in PAC-U, the patient will be admitted back to the floor for continued monitoring. She will likely need referral to a half-way facility at discharge. 07/16/19 07:32 07/16/19 07:59
--- NOTE | 2019-07-15 16:39 | Anesthesia Evaluation Post Op ---
Date of Encounter: 07/15/19 Time of Encounter: 16:35 - Vital Signs Vital Signs: Vital Signs/O2 Sat, Most Current Temp Pulse Resp BP Pulse Ox 97.9 F 78 14 125/67 98 07/15/19 16:25 07/15/19 16:25 07/15/19 16:25 07/15/19 16:25 07/15/19 16:25 - Lungs Lungs: Clear Ascult./Percussion - Airway Airway: Non-obstructed - Cardiovascular Regular Rate - Mental Status Mental Status: Alert & Oriented, Answers Appropriately (not talking, answers by nodding and shaking her head) - Pain Pain Scale: 0 Pain Scale used: Numeric (1 - 10) - Nausea Vomiting Nausea Vomiting: Not Present - Hydration Hydration: Ice chips, Has not voided - Discharge PostOp Status: Transfer Patient to floor
[2019-07-15] MEDS ORDERED: Naloxone 0.4 MG/ML INJ IVP PRN (17:41)
[2019-07-15] MEDS ORDERED: *HR* OxyCODONE Immed Rel 5 MG TABLET PO PRN (17:41)
[2019-07-15] MEDS ORDERED: Ondansetron 4 MG/2 ML VIAL IVP PRN (17:41)
[2019-07-15] MEDS ORDERED: traZODone 50 MG TABLET PO PRN (17:41)
[2019-07-15] MEDS: Divalproex (12 HR) 250 MG TABLET PO SCH ×2 (17:44→20:57)
[2019-07-15] MEDS: RisperiDAL 3 MG TABLET PO SCH ×2 (17:45→20:58)
[2019-07-15] MEDS ORDERED: Clindamycin 300 MG in D5% in Water 50 ML IVPB SCH (19:00)
[2019-07-16] MEDS ORDERED: *HR* Promethazine 25 MG/ML VIAL IVP PRN (01:57)
[2019-07-16 05:22] LABS: Basophils % 0.1 %; Hematocrit 33.7 % (35.3-44.9); Hemoglobin 11.1 g/dL (11.5-15.4); Immature Granulocytes % 0.7 % (0-4); Lymphocytes % 10.8 %; Mean Corpuscular HGB Conc 32.9 g/dL (31.6-35.5); Mean Corpuscular Hemoglobin 32.6 pg (28.0-33.3); Mean Corpuscular Volume 99.1 fL (83.0-100.0); Mean Platelet Volume 10.4 fL (9.4-12.4); Monocytes # 0.9 K/mcL (0.0-1.3); Neutrophils # 7.2 K/mcL (1.6-8.9); Platelet Count 141 K/mcL (140-400); Red Cell Distribution Width 12.3 % (11.5-14.5); Segmented Neutrophils % 78.4 %
[2019-07-16 05:28] LABS: White Blood Count 9.2 K/mcL (4.3-11.1)
[2019-07-16 05:39] LABS: BUN/Creatinine Ratio 15 (6-26); Blood Urea Nitrogen 8 mg/dL (6-20); Calcium 8.8 mg/dL (8.6-10.3); Carbon Dioxide 28 mEq/L (23-29); Chloride 109 mEq/L (98-107); Glucose 128 mg/dL (70-105); Osmolality,Calculated 292 (280-300); Potassium 3.8 mEq/L (3.5-5.1); Sodium 141 mEq/L (136-145); eGFR For African Americans > 60 (> 60); eGFR For Non-African Americans > 60 (> 60)
[2019-07-16] MEDS: *HR* Enoxaparin 40 MG/0.4 ML SYRINGE SQ SCH (05:42)
--- NOTE | 2019-07-16 10:37 | Internal Med Progress Note ---
Hospitalist Progress Note - Encounter Date of Encounter: 07/16/19 Time of Encounter: 10:35 - Subjective Interval History: We will seen and examined at bedside today. Patient had open reduction and internal fixation right ankle syndesmosis yesterday for primary fracture of right ankle. Patient reports that his pain is controlled. She denies any acute issues and concerns overnight. - Exam Vitals: Temp Pulse Resp BP Pulse Ox 98.1 F 83 16 118/79 97 07/16/19 07:31 07/16/19 07:31 07/16/19 07:31 07/16/19 07:31 07/16/19 07:31 Exam: Physical examination: Gen.: Patient is alert and oriented, not in respiratory distress or pain HEENT: perrla , EOMI, no thyroid gland enlargement, no neck mass, supple neck Heart: S1 and S2 chriss, normal sinus rhythm, no cardiac murmur no gallop rhythm Chest: Air entry equal bilaterally, clear chest, no wheezing, crackles or crepitation Abdomen: Soft nontender nondistended positive bowel sounds, Extremities: Dressing properly placed on the right ankle. Sensation and capillary refill are within normal limits distal to the joint. Patient is able to move right toes. Neuro: Able to move limbs, no focal neurological deficit. - Assessment and Plan (1) Trimalleolar fracture of ankle, closed Current Visit: No Status: Acute Assessment and Plan: Patient is status post open reduction and internal fixation of trimalleolar fracture of right ankle. Right ankle syndesmosis. Postoperative day 1. We will continue pain control. We will continue management per podiatry. (2) COPD (chronic obstructive pulmonary disease) Current Visit: Yes Status: Acute Assessment and Plan: We will continue home medication. (3) Depression Current Visit: Yes Status: Acute Assessment and Plan: We will continue home medication. Patient denies any suicidal ideation and homicidal ideation. (4) Anemia Current Visit: No Status: Chronic Assessment and Plan: We will continue to monitor hemoglobin today 10.9 - Time Spent with Patient Total time spent is greater than 50% in coordination of care (as documented) at patient's floor/unit and/or counseling patient: 25 - 35 minutes Plan of Care Discussed with: patient Internal Medicine: Result - Labs CBC & Chem 7: 07/16/19 04:34 07/16/19 04:34 Labs: Short CBC 08/16/19 Range/Units 04:34 WBC 9.2 D (4.3-11.1) K/mcL Hgb 11.1 L (11.5-15.4) g/dL Hct 33.7 L (35.3-44.9) % Plt Count 141 (140-400) K/mcL Neutrophils # 7.2 (1.6-8.9) K/mcL BMP 07/16/19 04:34 Sodium 141 Potassium 3.8 Chloride 109 H Carbon Dioxide 28 BUN 8 Creatinine 0.52 L Glucose 128 H Calcium 8.8 - Impressions Impressions Ankle X-Ray 07/15/19 00:00 IMPRESSION: Intraprocedural fluoroscopic spot images as above. See separate procedure report for more information. D/ /15/2019 15:31:54 Bang Herbert MD / ana Interpreting Provider: Bang Herbert MD Fluoroscopy 07/15/19 00:00 IMPRESSION: Intraprocedural fluoroscopic spot images as above. See separate procedure report for more information. D/ /15/2019 15:31:54 Bang Herbert MD / ana Interpreting Provider: Bang Herbert MD Consult Discharge Plan - Plan Referrals: Vinicio Craig MD [Primary Care Provider] - (1) Trimalleolar fracture of ankle, closed Qualifiers: Encounter type: initial encounter Laterality: right Qualified Code(s): S82.851A - Displaced trimalleolar fracture of right lower leg, initial encounter for closed fracture (2) COPD (chronic obstructive pulmonary disease) Qualifiers: COPD type: unspecified COPD Qualified Code(s): J44.9 - Chronic obstructive pulmonary disease, unspecified (4) Anemia Qualifiers: Anemia type: unspecified type Qualified Code(s): D64.9 - Anemia, unspecified
--- NOTE | 2019-07-16 11:00 | Podiatry Progress Note ---
Date of Encounter: 07/16/19 Time of Encounter: 09:05 - Assessment and Plan (1) Trimalleolar fracture of ankle, closed Current Visit: No Status: Acute Assessment: -Posterior splint dry and intact, no strike through noted -No swelling above or below posterior splint -Cap refill less than 3 seconds to all digits -Limited sensation and movement of toes s/p popliteal fossa adductor canal block Plan: -Keep extremity elevated with heel off of bed at all times -SW to coordinate SNF/ECF placement -PT/OT consulted -Follow up with Dr. Moon in office next week, please schedule appointment prior to discharge Qualifiers: Encounter type: initial encounter Laterality: right Qualified Code(s): S82.851A - Displaced trimalleolar fracture of right lower leg, initial encounter for closed fracture Subjective Interval history: Post op day #1 1. Open reduction with internal fixation trimalleolar ankle fr acture with repair of posterior malleolus, right ankle 2. Repair syndesmosis, right ankle by Dr. Moon on 07/15/2019 Patient is resting, aroused easily with verbal stimuli, and oriented x 3, no acu te distress noted. Patient denies any pain RLE at this time and reports it feels numb. She denies any chest pain, shortness of breath, or calf pain. She denies any fever, chills, n/v/d. Objective - Vital Signs Vital Signs: Vital Signs Temp Pulse Resp BP Pulse Ox 07/16/19 07:31 98.1 F 83 16 118/79 97 07/16/19 00:10 98.4 F 94 16 142/76 96 07/15/19 21:04 99 07/15/19 19:47 98.3 F 83 16 115/79 99 07/15/19 17:33 97.5 F L 77 18 128/84 95 07/15/19 17:00 97.6 F 80 20 119/81 95 07/15/19 16:35 97.9 F 78 14 122/63 98 07/15/19 16:25 97.9 F 78 14 125/67 98 07/15/19 16:15 76 16 119/76 98 07/15/19 16:05 75 15 128/59 98 07/15/19 15:55 97.6 F 79 14 139/77 100 07/15/19 11:38 83 123/65 100 07/15/19 11:10 83 125/67 95 Intake and Output 07/15/19 07/16/19 07/16/19 23:59 07:59 15:59 Intake Total 0 / 0 Output Total 300 / 300 Balance 0 / -25 -300 / -300 Intake: Oral 0 / 0 Output: Urine 300 / 300 Other: # Voids 2 # Urine Diapers 2 Weight 98.6 kg Blood Glucose* 146 Patient Weight 07/16/19 23:59 Weight 98.6 kg - Exam Exam: Constitutional: Patient resting, aroused easily, oriented x 3, no acute distress noted Vascular: Cap refill less than 3 seconds to exposed digits, no swelling above or below posterior splint, skin warm Constitutional: Posterior splint dry and intact, no strike through noted Neurological: Sensation limited patient did have a popliteal fossa adductor canal block prior to surgery Musculoskeletal: Movement of toes limited - Lab Result Diagrams: 07/16/19 04:34 07/16/19 04:34 Labs: Abnormal lab results RBC 3.40 M/mcL (3.82-4.97) L 07/16/19 04:34 Hgb 11.1 g/dL (11.5-15.4) L 07/16/19 04:34 Hct 33.7 % (35.3-44.9) L 07/16/19 04:34 MCV 101.8 fL (83.0-100.0) H 07/15/19 04:45 MCH 33.7 pg (28.0-33.3) H 07/13/19 14:38 Plt Count 112 K/mcL (140-400) L 07/15/19 04:45 Chloride 109 mEq/L (98-107) H 07/16/19 04:34 Creatinine 0.52 mg/dL (0.60-1.20) L 07/16/19 04:34 Glucose 128 mg/dL (70-105) H 07/16/19 04:34 POC Glucose 113 mg/dL (70-99) H 07/13/19 17:53 Calcium 8.5 mg/dL (8.6-10.3) L 07/15/19 04:45 AST 10 Units/L (13-39) L 07/13/19 14:38 ALT 6 Units/L (7-52) L 07/13/19 14:38 Serum Total Protein 5.5 g/dL (6.4-8.9) L 07/13/19 14:38 Albumin 3.3 g/dL (3.5-5.7) L 07/13/19 14:38 Globulin 2.2 g/dL (2.4-3.5) L 07/13/19 14:38 Ur Specific [place] > 1.030 (1.010-1.025) H 07/14/19 12:59 Urine Ketones 15 mg/dL (Negative) H 07/14/19 12:59 Urine Bilirubin Small (Negative) H 07/14/19 12:59 Ur Leukocyte Esterase Small (Negative) H 07/14/19 12:59 Urine Microscopic RBC 5-15 per hpf (0-3) H 07/14/19 12:59 Urine Microscopic WBC 3-5 per hpf (0-3) H 07/14/19 12:59 Ur Squamous Epith Cells Many per lpf (None-Few) H 07/14/19 12:59 Consult Discharge Plan - Plan Referrals: Vinicio Craig MD [Primary Care Provider] -
[2019-07-16] MEDS: Clindamycin 300 MG in D5% in Water 50 ML IVPB SCH ×3 (12:30→23:50)
[2019-07-16] MEDS: RisperiDAL 3 MG TABLET PO SCH ×2 (12:31→21:15)
[2019-07-16] MEDS: Divalproex (12 HR) 250 MG TABLET PO SCH ×2 (12:31→21:15)
[2019-07-16] MEDS: Acetaminophen 325 MG TABLET PO PRN ×2 (18:18→23:39)
[2019-07-17] MEDS: *HR* Enoxaparin 40 MG/0.4 ML SYRINGE SQ SCH (05:09)
[2019-07-17] MEDS: Clindamycin 300 MG in D5% in Water 50 ML IVPB SCH (09:31)
[2019-07-17] MEDS: Acetaminophen 325 MG TABLET PO PRN ×2 (09:32→23:08)
[2019-07-17] MEDS: Divalproex (12 HR) 250 MG TABLET PO SCH ×2 (09:32→22:01)
[2019-07-17] MEDS: RisperiDAL 3 MG TABLET PO SCH ×2 (09:32→22:01)
[2019-07-17 10:07] LABS: Basophils % 0.5 %; Eosinophils % 0.4 %; Hematocrit 34.1 % (35.3-44.9); Hemoglobin 10.7 g/dL (11.5-15.4); Immature Granulocytes % 0.7 % (0-4); Lymphocytes # 2.1 K/mcL (0.6-4.6); Lymphocytes % 25.3 %; Mean Corpuscular HGB Conc 31.4 g/dL (31.6-35.5); Mean Corpuscular Hemoglobin 32.3 pg (28.0-33.3); Mean Platelet Volume 9.8 fL (9.4-12.4); Monocytes # 0.8 K/mcL (0.0-1.3); Monocytes % 9.2 %; Neutrophils # 5.4 K/mcL (1.6-8.9); Nucleated Red Blood Cells 0.2 /100 WBC (0); Platelet Count 180 K/mcL (140-400); Red Blood Count 3.31 M/mcL (3.82-4.97); Segmented Neutrophils % 63.9 %; White Blood Count 8.5 K/mcL (4.3-11.1)
[2019-07-17 10:12] LABS: BUN/Creatinine Ratio 19 (6-26); Blood Urea Nitrogen 12 mg/dL (6-20); Calcium 8.5 mg/dL (8.6-10.3); Carbon Dioxide 27 mEq/L (23-29); Chloride 107 mEq/L (98-107); Glucose 135 mg/dL (70-105); Osmolality,Calculated 294 (280-300); Potassium 3.5 mEq/L (3.5-5.1); Sodium 141 mEq/L (136-145); eGFR For African Americans > 60 (> 60); eGFR For Non-African Americans > 60 (> 60)
--- NOTE | 2019-07-17 14:58 | Internal Med Progress Note ---
Hospitalist Progress Note - Encounter Date of Encounter: 07/17/19 Time of Encounter: 14:53 - Subjective Interval History: Patient was seen and examined at bedtime today. Patient reports of right-sided leg pain. Patient is able to move her right toes. Patient reports at nighttime she had a severe pain and she said the pain medication. Patient did fine with the pain medication. We will continue IV hydration. Patient can be discharged tomorrow to the longterm facility. Follow-up with podiatry in 1 week. - Exam Vitals: Temp Pulse Resp BP Pulse Ox 98.3 F 98 17 111/73 92 07/17/19 11:56 07/17/19 11:56 07/17/19 11:56 07/17/19 11:56 07/17/19 11:56 Exam: Physical examination: Gen.: Patient is alert and oriented, not in respiratory distress or pain HEENT: perrla , EOMI, no thyroid gland enlargement, no neck mass, supple neck Heart: S1 and S2 chriss, normal sinus rhythm, no cardiac murmur no gallop rhythm Chest: Air entry equal bilaterally, clear chest, no wheezing, crackles or crepitation Abdomen: Soft nontender nondistended positive bowel sounds, Extremities: Dressing properly placed on the right ankle. Sensation and capillary refill are within normal limits distal to the joint. Patient is able to move right toes. Neuro: Able to move limbs, no focal neurological deficit. - Assessment and Plan (1) Trimalleolar fracture of ankle, closed Current Visit: No Status: Acute Assessment and Plan: Patient is status post open reduction and internal fixation of trimalleolar fracture of right ankle. Right ankle syndesmosis. Postoperative day 2. We will continue pain control. We will continue management per podiatry. Patient finish 24-hour oral antibiotic Clindamycin. Continue Lovenox. Plan is to discharge patient tomorrow on Xarelto for 28 days. We will continue to monitor. (2) COPD (chronic obstructive pulmonary disease) Current Visit: Yes Status: Acute Assessment and Plan: We will continue home medication. (3) Depression Current Visit: Yes Status: Acute Assessment and Plan: We will continue home medication. Patient denies any suicidal ideation and homicidal ideation. (4) Anemia Current Visit: No Status: Chronic Assessment and Plan: We will continue to monitor hemoglobin today 10.7 - Time Spent with Patient Total time spent is greater than 50% in coordination of care (as documented) at patient's floor/unit and/or counseling patient: 25 - 35 minutes Plan of Care Discussed with: patient Internal Medicine: Result - Labs CBC & Chem 7: 07/17/19 09:23 07/17/19 09:23 Labs: Short CBC 07/17/19 Range/Units 09:23 WBC 8.5 (4.3-11.1) K/mcL Hgb 10.7 L (11.5-15.4) g/dL Hct 34.1 L (35.3-44.9) % Plt Count 180 (140-400) K/mcL Neutrophils # 5.4 (1.6-8.9) K/mcL BMP 07/17/19 09:23 Sodium 141 Potassium 3.5 Chloride 107 Carbon Dioxide 27 BUN 12 Creatinine 0.63 Glucose 135 H Calcium 8.5 L Consult Discharge Plan - Plan Referrals: Vinicio Craig MD [Primary Care Provider] - (1) Trimalleolar fracture of ankle, closed Qualifiers: Encounter type: initial encounter Laterality: right Qualified Code(s): S82.8 51A - Displaced trimalleolar fracture of right lower leg, initial encounter for closed fracture (2) COPD (chronic obstructive pulmonary disease) Qualifiers: COPD type: unspecified COPD Qualified Code(s): J44.9 - Chronic obstructive pulmonary disease, unspecified (4) Anemia Qualifiers: Anemia type: unspecified type Qualified Code(s): D64.9 - Anemia, unspecified
[2019-07-18] MEDS: *HR* Enoxaparin 40 MG/0.4 ML SYRINGE SQ SCH (05:44)
[2019-07-18 07:34] LABS: Basophils % 0.4 %; Eosinophils % 0.4 %; Hematocrit 30.4 % (35.3-44.9); Hemoglobin 9.6 g/dL (11.5-15.4); Immature Granulocytes % 0.6 % (0-4); Lymphocytes # 2.1 K/mcL (0.6-4.6); Lymphocytes % 20.1 %; Mean Corpuscular HGB Conc 31.6 g/dL (31.6-35.5); Mean Corpuscular Hemoglobin 32.7 pg (28.0-33.3); Mean Corpuscular Volume 103.4 fL (83.0-100.0); Monocytes # 1.8 K/mcL (0.0-1.3); Monocytes % 17.1 %; Neutrophils # 6.3 K/mcL (1.6-8.9); Nucleated Red Blood Cells 0.2 /100 WBC (0); Platelet Count 176 K/mcL (140-400); Red Blood Count 2.94 M/mcL (3.82-4.97); Red Cell Distribution Width 13.2 % (11.5-14.5); Segmented Neutrophils % 61.4 %; White Blood Count 10.3 K/mcL (4.3-11.1)
[2019-07-18 07:53] LABS: BUN/Creatinine Ratio 17 (6-26); Blood Urea Nitrogen 11 mg/dL (6-20); Calcium 8.4 mg/dL (8.6-10.3); Carbon Dioxide 27 mEq/L (23-29); Chloride 106 mEq/L (98-107); Glucose 111 mg/dL (70-105); Osmolality,Calculated 292 (280-300); Potassium 3.5 mEq/L (3.5-5.1); Sodium 141 mEq/L (136-145); eGFR For African Americans > 60 (> 60); eGFR For Non-African Americans > 60 (> 60)
[2019-07-18] MEDS: RisperiDAL 3 MG TABLET PO SCH (09:31)
[2019-07-18] MEDS: Divalproex (12 HR) 250 MG TABLET PO SCH (09:31)
[2019-07-18 11:01] VITALS: BP 117/74
--- NOTE | 2019-07-18 11:15 | Discharge Summary ---
- NOTES TO OUTPATIENT PROVIDER Notes to Outpatient Provider: She was seen in the hospital status post fall. Patient has a trimalleolar fracture of the right ankle. Patient got open reduction internal fixation by podiatry. [facility]. Patient is to take Zocor for 28 days. We will give her pain control for 4 straight. Follow-up with podiatry in 1 week in the office. Estimated PT Needs at Discharge: SNF/ECF Date of Encounter: 07/18/19 Time of Encounter: 11:09 - Discharge Diagnosis (1) Trimalleolar fracture of ankle, closed Priority: Primary Status: Acute Qualifiers: Encounter type: initial encounter Laterality: right Qualified Code(s): S82.851A - Displaced trimalleolar fracture of right lower leg, initial encounter for closed fracture (2) COPD (chronic obstructive pulmonary disease) Priority: Secondary Status: Acute Qualifiers: COPD type: unspecified COPD Qualified Code(s): J44.9 - Chronic obstructive pulmonary disease, unspecified (3) Depression Priority: Secondary Status: Acute Qualifiers: Depression Type: unspecified Qualified Code(s): F32.9 - Major depressive disorder, single episode, unspecified (4) Anemia Priority: Secondary Status: Chronic Qualifiers: Anemia type: unspecified type Qualified Code(s): D64.9 - Anemia, unspecified Hospital course: Ms. Kasper is a 53 year old female with past medical history of COPD depression and bipolar disorder presented to the hospital status post fall. Patient found right trimalleolar ankle fracture. Podiatry consult was placed patient got open reduction with internal fixation on the right side and right ankle syndesmosis. Patient tolerated procedure well. Patient's postoperative course was without any complication. [facility] Patient is to continue Zocor 10 mg daily for 28 day podiatry recommendation. Follow up with primary care provider. Follow-up with podiatry in 1 week. Discharge discussed with: patient, nurse, social work, case management - Time Spent with Patient Total time spent providing and/or coordinating discharge services: 40 Time spent: Greater than 30 minutes - Discharge Medications Prescriptions: New OxyCODONE Immed Rel [Roxicodone 5 MG] 5 mg PO Q6HR PRN 7 Days #28 tablet PRN Reason: moderate to severe pain Acetaminophen [Tylenol] 650 mg PO Q6HR PRN tablet PRN Reason: Mild Pain/Fever Rivaroxaban [Xarelto] 10 mg PO 1700 28 Days #28 tablet Continued Divalproex Sodium [Depakote] 500 mg PO BID Ferrous Sulfate 325 mg PO DAILY OLANZapine [Zyprexa] 10 mg PO DAILY PRN PRN Reason: Agitation traZODone [TraZODone] 100 mg PO HS PRN PRN Reason: Sleep RisperiDONE [Risperdal] 3 mg PO BID Haloperidol [Haldol] 5 mg PO BID PRN PRN Reason: Agitation Docusate Sodium [Dulcolax Stool Softener] 100 mg PO QAM Benztropine [Cogentin] 0.5 mg PO BID Loratadine [Claritin] 10 mg PO QAM Citalopram [CeleXA] 20 mg PO DAILY Calcium Carbonate/Vitamin D3 [Oyster Shell Calcium-Vit D Tab] 1 each PO QAM Haloperidol 5 mg PO QAM Tizanidine HCl [Zanaflex] 4 mg PO TID Hydrochlorothiazide [Microzide] 12.5 mg PO MOWEFR Ascorbate Calcium [Vitamin C] 500 mg PO DAILY Prazosin HCl [Minipress] 2 mg PO HS Haloperidol 10 mg PO HS Omeprazole [PriLOSEC] 20 mg PO DAILY Home Medications: Benztropine [Cogentin] 0.5 mg PO BID 01/03/19 [History] Calcium Carbonate/Vitamin D3 [Oyster Shell Calcium-Vit D Tab] 1 each PO QAM 01/03/19 [History] Citalopram [CeleXA] 20 mg PO DAILY 01/03/19 [History] Docusate Sodium [Dulcolax Stool Softener] 100 mg PO QAM 01/03/19 [History] Haloperidol [Haldol] 5 mg PO BID PRN 01/03/19 [History] Loratadine [Claritin] 10 mg PO QAM 01/03/19 [History] RisperiDONE [Risperdal] 3 mg PO BID 01/03/19 [History] Ascorbate Calcium [Vitamin C] 500 mg PO DAILY 07/13/19 [History] Divalproex Sodium [Depakote] 500 mg PO BID 07/13/19 [History] Ferrous Sulfate 325 mg PO DAILY 07/13/19 [History] Haloperidol 5 mg PO QAM 07/13/19 [History] Haloperidol 10 mg PO HS 07/13/19 [History] Hydrochlorothiazide [Microzide] 12.5 mg PO MOWEFR 07/13/19 [History] OLANZapine [Zyprexa] 10 mg PO DAILY PRN 07/13/19 [History] Omeprazole [PriLOSEC] 20 mg PO DAILY 07/13/19 [History] Prazosin HCl [Minipress] 2 mg PO HS 07/13/19 [History] Tizanidine HCl [Zanaflex] 4 mg PO TID 07/13/19 [History] traZODone [TraZODone] 100 mg PO HS PRN 07/13/19 [History] Acetaminophen [Tylenol] 650 mg PO Q6HR PRN tablet 07/18/19 [Rx] OxyCODONE Immed Rel [Roxicodone 5 MG] 5 mg PO Q6HR PRN 7 Days #28 tablet 07/18/19 [Rx] Rivaroxaban [Xarelto] 10 mg PO 1700 28 Days #28 tablet 07/18/19 [Rx] Allergies/Adverse Reactions: Allergy/AdvReac Type Severity Reaction Status Date / Time aspirin [ASA] Allergy Rash Verified 07/13/19 09:02 ibuprofen [From Advil] Allergy Rash Verified 07/13/19 09:02 Penicillins [PCN] Allergy Rash Verified 07/13/19 09:02 Date of admission: 07/15/19 13:40 Primary care physician: Vinicio Craig MD Consults: 07/13/19 14:12 Consult to Orthopedic Surgery [CONS] Routine Consulting Provider: Orthoped[facility] Reason for Consult: ankle fracture Call Completed: Yes 07/13/19 14:47 Consult to Podiatry [CONS] Routine Consulting Provider: Podiatry [facility] Reason for Consult: right ankle fracture Call Completed: Yes 07/15/19 12:57 Consult to Occupational Therapy Specialist [CONS] Routine Reason for SW Consult: [facility]ool, requesting SNF placement if appropriate. Choices at this time - [facility] or [facility] [place]. Will need PT/OT placed after OR 07/16/19 08:37 Consult to Occupational Therapy [CONS] Routine Comment: Evaluate, develop and implement POC Reason for Consult: weakness; pod#1 right ankle fracture Does patient have active BEDREST order?: No Is patient medically & hemodynamically stable?: Yes Patient assessed for mobility or mobilized this visit?: No Consult to Physical Therapy [CONS] Routine Comment: Evaluate, develop and implement POC Reason for Consult: weakness; pod#1 right ankle fracture Does patient have active BEDREST order?: No Is patient medically & hemodynamically stable?: Yes Patient assessed for mobility or mobilized this visit?: No Discharging clinician: Bairon Barreto - Constitutional Vitals: Temp Pulse Resp BP Pulse Ox 99.3 F 107 17 117/74 92 07/18/19 11:00 07/18/19 11:00 07/18/19 11:00 07/18/19 11:00 07/18/19 11:00 General appearance: Present: cooperative, A&O X 3 Exam: Physical examination: Gen.: Patient is alert and oriented, not in respiratory distress or pain HEENT: perrla , EOMI, no thyroid gland enlargement, no neck mass, supple neck Heart: S1 and S2 chriss, normal sinus rhythm, no cardiac murmur no gallop rhythm Chest: Air entry equal bilaterally, clear chest, no wheezing, crackles or crepitation Abdomen: Soft nontender nondistended positive bowel sounds, Extremities: Dressing properly placed on the right ankle. Sensation and capillary refill are within normal limits distal to the joint. Patient is able to move right toes. Neuro: Able to move limbs, no focal neurological deficit. - Patient Status Disposition: Transfer SNF Functional capacity at discharge: uses cane/walker Overall status at discharge: patient is progressing back to baseline - Discharge Instructions Follow Up With: Vinicio Craig MD [Primary Care Provider] - Additional Instructions: Follow-up with podiatry in 1 week. - Diet and Activity Activity: as per physical therapy, increase activity as tolerated Diet: regular diet
--- NOTE | 2019-07-18 11:24 | Physician Discharge Referral ---
ExtendedCare Referral Info Transfer To: SNF Provider in Charge after Transfer: PCP - Diagnosis (1) Trimalleolar fracture of ankle, closed Priority: Primary Status: Acute (2) COPD (chronic obstructive pulmonary disease) Priority: Secondary Status: Acute (3) Depression Priority: Secondary Status: Acute (4) Anemia Priority: Secondary Status: Chronic Expected Duration of Placement: 30 days Prognosis: Good - Transfer Medications Prescriptions: OxyCODONE Immed Rel [Roxicodone 5 MG] 5 mg PO Q6HR PRN 7 Days #28 tablet PRN Reason: moderate to severe pain Rivaroxaban [Xarelto] 10 mg PO 1700 28 Days #28 tablet Home Medications: Benztropine [Cogentin] 0.5 mg PO BID 01/03/19 [History] Calcium Carbonate/Vitamin D3 [Oyster Shell Calcium-Vit D Tab] 1 each PO QAM 01/03/19 [History] Citalopram [CeleXA] 20 mg PO DAILY 01/03/19 [History] Docusate Sodium [Dulcolax Stool Softener] 100 mg PO QAM 01/03/19 [History] Haloperidol [Haldol] 5 mg PO BID PRN 01/03/19 [History] Loratadine [Claritin] 10 mg PO QAM 01/03/19 [History] RisperiDONE [Risperdal] 3 mg PO BID 01/03/19 [History] Ascorbate Calcium [Vitamin C] 500 mg PO DAILY 07/13/19 [History] Divalproex Sodium [Depakote] 500 mg PO BID 07/13/19 [History] Ferrous Sulfate 325 mg PO DAILY 07/13/19 [History] Haloperidol 5 mg PO QAM 07/13/19 [History] Haloperidol 10 mg PO HS 07/13/19 [History] Hydrochlorothiazide [Microzide] 12.5 mg PO MOWEFR 07/13/19 [History] OLANZapine [Zyprexa] 10 mg PO DAILY PRN 07/13/19 [History] Omeprazole [PriLOSEC] 20 mg PO DAILY 07/13/19 [History] Prazosin HCl [Minipress] 2 mg PO HS 07/13/19 [History] Tizanidine HCl [Zanaflex] 4 mg PO TID 07/13/19 [History] traZODone [TraZODone] 100 mg PO HS PRN 07/13/19 [History] Acetaminophen [Tylenol] 650 mg PO Q6HR PRN tablet 07/18/19 [Rx] OxyCODONE Immed Rel [Roxicodone 5 MG] 5 mg PO Q6HR PRN 7 Days #28 tablet 07/18/19 [Rx] Rivaroxaban [Xarelto] 10 mg PO 1700 28 Days #28 tablet 07/18/19 [Rx] Allergies/Adverse Reactions: Allergy/AdvReac Type Severity Reaction Status Date / Time aspirin [ASA] Allergy Rash Verified 07/13/19 09:02 ibuprofen [From Advil] Allergy Rash Verified 07/13/19 09:02 Penicillins [PCN] Allergy Rash Verified 07/13/19 09:02 - Respiratory Orders Smoking Cessation: Smoking cessation has been advised. For more information, call the [place] Tobacco Quit Line at 2-627-NNAT-NOW. - Ancillary Orders May use pressure relief devices daily prn - Advance Directives Code Status: Full Code - Mobility Orders Ambulate - Rehabiliation Orders Rehab Orders: ROM Exercises, Evaluation for Physical Therapy, Evaluation for Occupational Therapy - Treatments Skin tear care topically daily PRN per policy - Diet Orders Regular CERTIFICATION: I certify that the transfer of the above named patient to an Extended Care Facility is necessary for the continuing treatment of the diagnosis listed. The above information is true and accurate reflection of patient's current condition. Confidential - Redisclosure prohibited without a patient's written consent.
== END 2019-07-18 13:20 | DRG 494 ==
LOC: 3ANU → SUATTDRO 13:39
PROVIDERS: ADMIT Internal Medicine; ATTEND Family Medicine

== ENCOUNTER 2020-10-09 14:48 | Inpatient (IN) ==
[2020-10-09] MEDS ORDERED: 0.9 % Sodium Chloride 1,000 ML IVC ONE (17:26)
[2020-10-09] MEDS ORDERED: Cefepime HCl 2,000 MG in 0.9 % Sodium Chloride Mini Bag 100 ML IVPB ONE (17:30)
[2020-10-09] MEDS ORDERED: Vancomycin 1,500 MG/265 ML IV.SOLN IVPB ONE (17:35)
[2020-10-09 17:57] LABS: Basophils % 0.8 %; Eosinophils # 0.1 K/mcL (0.0-0.6); Hematocrit 41.3 % (35.3-44.9); Immature Granulocytes % 0.6 % (0-4); Lymphocytes % 37.9 %; Mean Corpuscular HGB Conc 31.5 g/dL (31.6-35.5); Mean Corpuscular Hemoglobin 32.7 pg (28.0-33.3); Mean Platelet Volume 8.3 fL (9.4-12.4); Monocytes # 0.7 K/mcL (0.0-1.3); Neutrophils # 2.5 K/mcL (1.6-8.9); Platelet Count 242 K/mcL (140-400); Red Blood Count 3.97 M/mcL (3.82-4.97); Red Cell Distribution Width 13.2 % (11.5-14.5); Segmented Neutrophils % 46.7 %; White Blood Count 5.3 K/mcL (4.3-11.1)
[2020-10-09 18:19] LABS: BUN/Creatinine Ratio 25 (6-26); Blood Urea Nitrogen 19 mg/dL (6-20); C-Reactive Protein 12 mg/L (Less than 10); Calcium 9.5 mg/dL (8.6-10.3); Carbon Dioxide 29 mEq/L (23-29); Chloride 104 mEq/L (98-107); Glucose 96 mg/dL (70-105); Osmolality,Calculated 294 (280-300); Potassium 3.7 mEq/L (3.5-5.1); Sodium 141 mEq/L (136-145); eGFR For African Americans > 60 (> 60); eGFR For Non-African Americans > 60 (> 60)
[2020-10-09] MEDS ORDERED: Ondansetron ODT 4 MG TAB.RAPDIS SL PRN (20:25)
[2020-10-09] MEDS ORDERED: Naloxone 0.4 MG/ML INJ IVP PRN (20:25)
[2020-10-09] MEDS ORDERED: Acetaminophen 325 MG TABLET PO PRN (20:25)
[2020-10-09] MEDS ORDERED: 0.9 % Sodium Chloride 1,000 ML IVC SCH (20:30)
[2020-10-09] MEDS ORDERED: hydroCHLOROthiazide 25 MG TABLET PO SCH (23:30)
[2020-10-09] MEDS ORDERED: OLANZapine 10 MG TAB.RAPDIS PO PRN (23:30)
[2020-10-09] MEDS ORDERED: traZODone 50 MG TABLET PO PRN (23:30)
[2020-10-09] MEDS ORDERED: haloperidoL 5 MG TABLET PO PRN (23:30)
[2020-10-10 05:57] LABS: Basophils % 0.8 %; Eosinophils # 0.1 K/mcL (0.0-0.6); Hematocrit 35.8 % (35.3-44.9); Immature Granulocytes % 0.4 % (0-4); Lymphocytes # 1.6 K/mcL (0.6-4.6); Lymphocytes % 33.2 %; Mean Corpuscular HGB Conc 31.6 g/dL (31.6-35.5); Mean Corpuscular Hemoglobin 32.8 pg (28.0-33.3); Mean Corpuscular Volume 104.1 fL (83.0-100.0); Mean Platelet Volume 8.2 fL (9.4-12.4); Monocytes # 0.9 K/mcL (0.0-1.3); Monocytes % 18.9 %; Neutrophils # 2.2 K/mcL (1.6-8.9); Nucleated Red Blood Cells 0.4 /100 WBC (0); Platelet Count 209 K/mcL (140-400); Red Blood Count 3.44 M/mcL (3.82-4.97); Red Cell Distribution Width 13.2 % (11.5-14.5); Segmented Neutrophils % 44.7 %; White Blood Count 4.9 K/mcL (4.3-11.1)
[2020-10-10] MEDS ORDERED: Cefepime HCl 1,000 MG in 0.9 % Sodium Chloride Mini Bag 100 ML IVPB SCH (06:00)
[2020-10-10 06:08] LABS: INR 1.1; Prothrombin Time 13.2 Seconds (9.4-12.1)
[2020-10-10 06:10] LABS: Hemoglobin 11.3 g/dL (11.5-15.4)
[2020-10-10 06:23] LABS: BUN/Creatinine Ratio 21 (6-26); Blood Urea Nitrogen 15 mg/dL (6-20); Calcium 8.4 mg/dL (8.6-10.3); Carbon Dioxide 28 mEq/L (23-29); Chloride 110 mEq/L (98-107); Glucose 90 mg/dL (70-105); Magnesium 1.7 mg/dL (1.6-2.6); Osmolality,Calculated 296 (280-300); Phosphorous 2.7 mg/dL (2.7-4.5); Potassium 3.8 mEq/L (3.5-5.1); Sodium 143 mEq/L (136-145); eGFR For African Americans > 60 (> 60); eGFR For Non-African Americans > 60 (> 60)
[2020-10-10] MEDS: *HR* Heparin 5,000 UNIT/ML VIAL SQ SCH ×3 (06:35→21:00)
[2020-10-10] MEDS ORDERED: haloperidoL 5 MG TABLET PO SCH ×2 (09:00→21:00)
[2020-10-10] MEDS ORDERED: tiZANidine 4 MG TABLET PO SCH (09:00)
[2020-10-10] MEDS ORDERED: RisperiDAL 3 MG TABLET PO SCH ×2 (09:00→21:00)
[2020-10-10] MEDS ORDERED: Divalproex (12 HR) 250 MG TABLET PO SCH ×2 (09:00→21:00)
[2020-10-10] MEDS ORDERED: Loratadine 10 MG TABLET PO SCH (09:00)
[2020-10-10] MEDS ORDERED: *HR* OxyCODONE Immed Rel 5 MG TABLET PO PRN ×2 (11:29→15:47)
[2020-10-10] MEDS ORDERED: Ondansetron 4 MG/2 ML VIAL IVP PRN ×2 (11:29→15:47)
[2020-10-10] MEDS ORDERED: Lidocaine 1% 0 ML ONE (12:15)
[2020-10-10] MEDS ORDERED: *HR* FentaNYL (PF) 100 MCG/2 ML VIAL ONE (12:25)
[2020-10-10] MEDS ORDERED: Ondansetron 4 MG/2 ML VIAL ONE (12:25)
[2020-10-10] MEDS ORDERED: Lidocaine -MPF 2% 2 ML VIAL ONE (12:25)
[2020-10-10] MEDS ORDERED: *HR* Propofol 200 MG/20 ML VIAL IVP ONE (12:25)
[2020-10-10] MEDS ORDERED: Lidocaine -MPF 4% 5 ML AMPUL ONE (12:25)
[2020-10-10] MEDS ORDERED: Dexamethasone 4 MG/ML VIAL ONE (12:25)
[2020-10-10] MEDS ORDERED: Acetaminophen IV 1,000 MG/100 ML INFUS..BTL ONE (12:35)
[2020-10-10] MEDS ORDERED: Famotidine 20 MG/2 ML VIAL ONE (12:35)
[2020-10-10] MEDS ORDERED: 0.9 % Sodium Chloride 1,000 ML IVC SCH (15:47)
[2020-10-10] MEDS ORDERED: Acetaminophen 325 MG TABLET PO PRN (15:47)
[2020-10-10] MEDS ORDERED: OLANZapine 10 MG TAB.RAPDIS PO PRN (15:47)
[2020-10-10] MEDS ORDERED: haloperidoL 5 MG TABLET PO PRN (15:47)
[2020-10-10] MEDS ORDERED: traZODone 50 MG TABLET PO PRN (15:47)
[2020-10-10] MEDS ORDERED: Ondansetron ODT 4 MG TAB.RAPDIS SL PRN (15:47)
[2020-10-10] MEDS ORDERED: Naloxone 0.4 MG/ML INJ IVP PRN (15:47)
[2020-10-10] MEDS ORDERED: Ipratropium/Albuterol Neb 3 ML IH PRN (16:30)
[2020-10-10] MEDS: hydroCHLOROthiazide 25 MG TABLET PO SCH (16:41)
[2020-10-10] MEDS: haloperidoL 5 MG TABLET PO SCH ×2 (16:59→21:03)
[2020-10-10] MEDS: Cefepime HCl 1,000 MG in 0.9 % Sodium Chloride Mini Bag 100 ML IVPB SCH (18:14)
[2020-10-10] MEDS ORDERED: Vancomycin 1,500 MG/265 ML IV.SOLN IVPB SCH ×2 (21:00)
[2020-10-10] MEDS: Divalproex (12 HR) 250 MG TABLET PO SCH (21:01)
[2020-10-10] MEDS: tiZANidine 4 MG TABLET PO SCH (21:01)
[2020-10-10] MEDS: RisperiDAL 3 MG TABLET PO SCH (21:01)
[2020-10-10] MEDS: Vancomycin 1,500 MG/265 ML IV.SOLN IVPB SCH (21:02)
[2020-10-11] MEDS: Cefepime HCl 1,000 MG in 0.9 % Sodium Chloride Mini Bag 100 ML IVPB SCH ×2 (05:22→19:01)
[2020-10-11] MEDS: *HR* Heparin 5,000 UNIT/ML VIAL SQ SCH ×3 (05:22→21:52)
[2020-10-11 08:27] LABS: Basophils % 0.5 %; Eosinophils % 0.2 %; Hematocrit 36.6 % (35.3-44.9); Hemoglobin 11.8 g/dL (11.5-15.4); Immature Granulocytes % 0.7 % (0-4); Lymphocytes # 1.8 K/mcL (0.6-4.6); Lymphocytes % 29.9 %; Mean Corpuscular HGB Conc 32.2 g/dL (31.6-35.5); Mean Corpuscular Hemoglobin 33.5 pg (28.0-33.3); Mean Platelet Volume 8.7 fL (9.4-12.4); Monocytes # 0.7 K/mcL (0.0-1.3); Monocytes % 11.4 %; Neutrophils # 3.4 K/mcL (1.6-8.9); Platelet Count 185 K/mcL (140-400); Red Blood Count 3.52 M/mcL (3.82-4.97); Red Cell Distribution Width 12.8 % (11.5-14.5); Segmented Neutrophils % 57.3 %; White Blood Count 5.9 K/mcL (4.3-11.1)
[2020-10-11 08:47] LABS: BUN/Creatinine Ratio 24 (6-26); Blood Urea Nitrogen 16 mg/dL (6-20); Calcium 8.5 mg/dL (8.6-10.3); Carbon Dioxide 25 mEq/L (23-29); Chloride 109 mEq/L (98-107); Glucose 99 mg/dL (70-105); Osmolality,Calculated 289 (280-300); Potassium 4.1 mEq/L (3.5-5.1); Sodium 139 mEq/L (136-145); eGFR For African Americans > 60 (> 60); eGFR For Non-African Americans > 60 (> 60)
[2020-10-11] MEDS: tiZANidine 4 MG TABLET PO SCH ×4 (09:35→21:46)
[2020-10-11] MEDS: Divalproex (12 HR) 250 MG TABLET PO SCH ×2 (09:36→21:52)
[2020-10-11] MEDS: haloperidoL 5 MG TABLET PO SCH ×3 (09:36→21:45)
[2020-10-11] MEDS: Loratadine 10 MG TABLET PO SCH (09:37)
[2020-10-11] MEDS: RisperiDAL 3 MG TABLET PO SCH ×2 (09:37→22:02)
[2020-10-11] MEDS ORDERED: 0.9 % Sodium Chloride 500 ML IVC ONE (09:53)
[2020-10-11] MEDS: Vancomycin 1,500 MG/265 ML IV.SOLN IVPB SCH (10:01)
[2020-10-11] MEDS: hydroCHLOROthiazide 25 MG TABLET PO SCH (15:13)
[2020-10-11] MEDS ORDERED: traZODone 50 MG TABLET PO PRN (15:46)
[2020-10-11] MEDS: Vancomycin 1,250 MG/262.5 ML IV.SOLN IVPB SCH (21:53)
[2020-10-12 02:40] LABS: Basophils % 0.6 %; Eosinophils # 0.1 K/mcL (0.0-0.6); Eosinophils % 1.4 %; Hematocrit 35.2 % (35.3-44.9); Immature Granulocytes % 0.6 % (0-4); Lymphocytes % 46.2 %; Mean Corpuscular HGB Conc 31.3 g/dL (31.6-35.5); Mean Corpuscular Hemoglobin 33.2 pg (28.0-33.3); Mean Corpuscular Volume 106.3 fL (83.0-100.0); Mean Platelet Volume 8.5 fL (9.4-12.4); Monocytes # 0.9 K/mcL (0.0-1.3); Monocytes % 13.9 %; Neutrophils # 2.4 K/mcL (1.6-8.9); Platelet Count 194 K/mcL (140-400); Red Blood Count 3.31 M/mcL (3.82-4.97); Red Cell Distribution Width 13.5 % (11.5-14.5); Segmented Neutrophils % 37.3 %; White Blood Count 6.5 K/mcL (4.3-11.1)
[2020-10-12 02:58] LABS: BUN/Creatinine Ratio 23 (6-26); Blood Urea Nitrogen 21 mg/dL (6-20); Calcium 8.4 mg/dL (8.6-10.3); Carbon Dioxide 28 mEq/L (23-29); Chloride 110 mEq/L (98-107); Glucose 101 mg/dL (70-105); Osmolality,Calculated 295 (280-300); Potassium 3.9 mEq/L (3.5-5.1); Sodium 141 mEq/L (136-145); eGFR For African Americans > 60 (> 60); eGFR For Non-African Americans > 60 (> 60)
[2020-10-12] MEDS: Cefepime HCl 1,000 MG in 0.9 % Sodium Chloride Mini Bag 100 ML IVPB SCH ×2 (05:11→18:49)
[2020-10-12] MEDS: *HR* Heparin 5,000 UNIT/ML VIAL SQ SCH ×3 (05:11→21:11)
[2020-10-12] MEDS: Divalproex (12 HR) 250 MG TABLET PO SCH ×2 (07:35→21:13)
[2020-10-12] MEDS: tiZANidine 4 MG TABLET PO SCH ×3 (07:36→21:12)
[2020-10-12] MEDS: RisperiDAL 3 MG TABLET PO SCH ×2 (07:36→21:44)
[2020-10-12] MEDS: haloperidoL 5 MG TABLET PO SCH ×3 (07:36→21:12)
[2020-10-12] MEDS: Loratadine 10 MG TABLET PO SCH (07:36)
[2020-10-12] MEDS: Vancomycin 1,250 MG/262.5 ML IV.SOLN IVPB SCH ×2 (10:14→21:14)
[2020-10-12 19:25] LABS: CK-MB (CK isoenzymes) 0 % (0-4); CK-MM (CK-isoenzymes) 100 % (96-100)
[2020-10-12] MEDS: Vancomycin 1,500 MG/265 ML IV.SOLN IVPB SCH (23:36)
[2020-10-13 02:41] LABS: Basophils % 0.7 %; Eosinophils # 0.1 K/mcL (0.0-0.6); Hematocrit 35.5 % (35.3-44.9); Hemoglobin 11.2 g/dL (11.5-15.4); Immature Granulocytes % 0.9 % (0-4); Lymphocytes # 3.1 K/mcL (0.6-4.6); Lymphocytes % 53.2 %; Mean Corpuscular HGB Conc 31.5 g/dL (31.6-35.5); Mean Corpuscular Hemoglobin 33.1 pg (28.0-33.3); Mean Platelet Volume 8.3 fL (9.4-12.4); Monocytes # 0.8 K/mcL (0.0-1.3); Monocytes % 13.5 %; Neutrophils # 1.8 K/mcL (1.6-8.9); Nucleated Red Blood Cells 0.3 /100 WBC (0); Platelet Count 183 K/mcL (140-400); Red Blood Count 3.38 M/mcL (3.82-4.97); Red Cell Distribution Width 13.5 % (11.5-14.5); Segmented Neutrophils % 29.7 %; White Blood Count 5.9 K/mcL (4.3-11.1)
[2020-10-13 03:17] LABS: BUN/Creatinine Ratio 23 (6-26); Blood Urea Nitrogen 18 mg/dL (6-20); Carbon Dioxide 25 mEq/L (23-29); Chloride 108 mEq/L (98-107); Glucose 90 mg/dL (70-105); Osmolality,Calculated 285 (280-300); Potassium 4.1 mEq/L (3.5-5.1); Sodium 137 mEq/L (136-145); eGFR For African Americans > 60 (> 60); eGFR For Non-African Americans > 60 (> 60)
[2020-10-13] MEDS: *HR* Heparin 5,000 UNIT/ML VIAL SQ SCH (05:23)
[2020-10-13] MEDS: Cefepime HCl 1,000 MG in 0.9 % Sodium Chloride Mini Bag 100 ML IVPB SCH (05:23)
[2020-10-13] MEDS: haloperidoL 5 MG TABLET PO SCH (08:14)
[2020-10-13] MEDS: RisperiDAL 3 MG TABLET PO SCH (08:14)
[2020-10-13] MEDS: Divalproex (12 HR) 250 MG TABLET PO SCH (08:14)
[2020-10-13] MEDS: Loratadine 10 MG TABLET PO SCH (08:14)
[2020-10-13] MEDS: tiZANidine 4 MG TABLET PO SCH (08:14)
[2020-10-13 10:32] LABS: CK Total (Ck Isoenzymes) 34 U/L (20-180); CK-BB (CK isoenzymes) 0 % (0-0)
[2020-10-13 10:47] VITALS: BP 120/72
[2020-10-13] MEDS: Vancomycin 1,500 MG/265 ML IV.SOLN IVPB SCH (11:15)
== END 2020-10-13 16:04 | DRG 580 ==
LOC: EMEROOARM 14:48 → 3NENU 14:48 → SUATTDRO 10-10 12:25
PROVIDERS: ADMIT Family Medicine; ATTEND Internal Medicine

== ENCOUNTER 2021-06-06 02:26 | Observation (INO) ==
[2021-06-06 03:14] LABS: Basophils # 0.1 K/mcL (0.0-0.2); Basophils % 0.7 %; Eosinophils # 0.1 K/mcL (0.0-0.6); Eosinophils % 1.5 %; Hematocrit 37.3 % (35.3-44.9); Immature Granulocytes % 3.1 % (0-4); Lymphocytes # 2.1 K/mcL (0.6-4.6); Lymphocytes % 25.4 %; Mean Corpuscular HGB Conc 32.2 g/dL (31.6-35.5); Mean Corpuscular Hemoglobin 32.7 pg (28.0-33.3); Mean Corpuscular Volume 101.6 fL (83.0-100.0); Monocytes # 1.5 K/mcL (0.0-1.3); Monocytes % 17.5 %; Neutrophils # 4.3 K/mcL (1.6-8.9); Nucleated Red Blood Cells 0.4 /100 WBC (0); Platelet Count 158 K/mcL (140-400); Red Blood Count 3.67 M/mcL (3.82-4.97); Segmented Neutrophils % 51.8 %; White Blood Count 8.3 K/mcL (4.3-11.1)
[2021-06-06 03:33] LABS: BUN/Creatinine Ratio 17 (6-26); Blood Urea Nitrogen 16 mg/dL (6-20); Calcium 9.1 mg/dL (8.6-10.3); Carbon Dioxide 30 mEq/L (23-29); Chloride 100 mEq/L (98-107); Glucose 116 mg/dL (70-105); Osmolality,Calculated 286 (280-300); Potassium 3.4 mEq/L (3.5-5.1); Sodium 137 mEq/L (136-145); eGFR For African Americans > 60 (> 60); eGFR For Non-African Americans > 60 (> 60)
[2021-06-06] MEDS ORDERED: Isovue-370 500 ML BOTTLE IVP ONE (03:45)
[2021-06-06 04:45] LABS: Bilirubin,Urine Negative (Negative); Blood,Urine Negative (Negative); Clarity,Urine Clear (Clear); Color,Urine Dark-Yellow (Yellow); Glucose,Urine (UA) Normal (Normal); Ketones,Urine 10 mg/dL (Negative); Leukocyte Esterase,Urine Negative (Negative); Nitrite,Urine Negative (Negative); Protein,Urine Trace mg/dL (Neg-Trace); Specific Gravity,Urine 1.024 (1.010-1.025); Urobilinogen,Urine >=8.0 mg/dL (Normal)
[2021-06-06] MEDS ORDERED: Acetaminophen 325 MG TABLET PO PRN (08:00)
[2021-06-06] MEDS ORDERED: Perflutren Lipid Microsphere 1.3 ML in 0.9 % Sodium Chloride 8.7 ML IVP PRN (08:00)
[2021-06-06] MEDS ORDERED: Ondansetron 4 MG/2 ML VIAL IVP PRN (08:08)
[2021-06-06] MEDS ORDERED: Naloxone 0.4 MG/ML INJ IVP PRN (08:08)
[2021-06-06] MEDS ORDERED: Melatonin 3 MG TABLET PO PRN (08:08)
[2021-06-06 09:23] LABS: Chol/HDL Ratio 5.4 (0-4.9); Cholesterol 173 mg/dL (< 200); HDL Cholesterol 32 mg/dL (40-59); LDL Cholesterol,Calculated 111 mg/dL (< 100); Triglycerides 149 mg/dL (< 150); Troponin I < 0.03 ng/mL (< 0.04)
[2021-06-06 09:58] LABS: Estimated Average Glucose 100 mg/dl; Hemoglobin A1C 5.1 %
[2021-06-06] MEDS ORDERED: D5% in Water 1,000 ML IVC PRN (11:09)
[2021-06-06] MEDS ORDERED: Dextrose Gel 15 GM/37.5 ML TUBE PO PRN ×2 (11:09)
[2021-06-06] MEDS ORDERED: *HR* Dextrose 50 % in Water (Vial) 50 ML VIAL IVP PRN (11:09)
[2021-06-06] MEDS: Divalproex (12 HR) 250 MG TABLET PO SCH (11:49)
[2021-06-06 12:39] LABS: Alanine Aminotransferase 155 Units/L (7-52); Albumin 2.8 g/dL (3.5-5.7); Alkaline Phosphatase 238 Units/L (34-104); Aspartate Amino Transferase 115 Units/L (13-39); Bilirubin,Direct 0.6 mg/dL (0.0-0.2); Bilirubin,Indirect 0.6 mg/dL (0.0-1.0); Bilirubin,Total 1.2 mg/dL (0.3-1.0); Globulin 2.9 g/dL (2.4-3.5); Total Protein 5.7 g/dL (6.4-8.9)
[2021-06-06] MEDS ORDERED: Divalproex (12 HR) 250 MG TABLET PO SCH (21:00)
[2021-06-06] MEDS: RisperiDAL 3 MG TABLET PO SCH (21:58)
[2021-06-07 03:56] LABS: Hematocrit 39.2 % (35.3-44.9); Hemoglobin 12.5 g/dL (11.5-15.4); Mean Corpuscular HGB Conc 31.9 g/dL (31.6-35.5); Mean Corpuscular Hemoglobin 32.6 pg (28.0-33.3); Mean Corpuscular Volume 102.1 fL (83.0-100.0); Mean Platelet Volume 10.3 fL (9.4-12.4); Platelet Count 174 K/mcL (140-400); Red Blood Count 3.84 M/mcL (3.82-4.97); Red Cell Distribution Width 13.6 % (11.5-14.5); White Blood Count 8.9 K/mcL (4.3-11.1)
[2021-06-07 04:13] LABS: BUN/Creatinine Ratio 23 (6-26); Blood Urea Nitrogen 15 mg/dL (6-20); Carbon Dioxide 27 mEq/L (23-29); Chloride 104 mEq/L (98-107); Glucose 104 mg/dL (70-105); Magnesium 1.9 mg/dL (1.6-2.6); Osmolality,Calculated 291 (280-300); Potassium 3.7 mEq/L (3.5-5.1); Sodium 140 mEq/L (136-145); eGFR For African Americans > 60 (> 60); eGFR For Non-African Americans > 60 (> 60)
[2021-06-07] MEDS ORDERED: haloperidoL 5 MG TABLET PO PRN (07:26)
[2021-06-07] MEDS ORDERED: polyethylene glycoL 3350 17 GM POWD.PACK PO PRN (07:26)
[2021-06-07 07:51] LABS: Alanine Aminotransferase 104 Units/L (7-52); Albumin 2.8 g/dL (3.5-5.7); Albumin/Globulin Ratio 0.9 (1.1-2.2); Alkaline Phosphatase 274 Units/L (34-104); Aspartate Amino Transferase 70 Units/L (13-39); Bilirubin,Direct 0.5 mg/dL (0.0-0.2); Bilirubin,Indirect 0.6 mg/dL (0.0-1.0); Bilirubin,Total 1.1 mg/dL (0.3-1.0); Globulin 3.1 g/dL (2.4-3.5); Total Protein 5.9 g/dL (6.4-8.9)
[2021-06-07] MEDS ORDERED: Lactobacillus 1 EACH CAP.SPRINK PO SCH (09:00)
[2021-06-07] MEDS ORDERED: OLANZapine 5 MG TAB.RAPDIS PO SCH (09:00)
[2021-06-07] MEDS ORDERED: PARoxetine 10 MG TABLET PO SCH (09:00)
[2021-06-07] MEDS ORDERED: Divalproex (12 HR) 500 MG TABLET PO SCH (09:00)
[2021-06-07] MEDS ORDERED: Famotidine 20 MG TABLET PO SCH (09:00)
[2021-06-07] MEDS ORDERED: Loratadine 10 MG TABLET PO SCH (09:00)
[2021-06-07] MEDS ORDERED: Cholecalciferol (D-3) 1,000 UNIT (25MCG) TABLET PO SCH (09:00)
[2021-06-07] MEDS: Divalproex (12 HR) 250 MG TABLET PO SCH (09:06)
[2021-06-07] MEDS: RisperiDAL 3 MG TABLET PO SCH (09:06)
[2021-06-07] MEDS: tiZANidine 4 MG TABLET PO SCH ×2 (09:07→15:45)
[2021-06-07 16:29] VITALS: BP 115/68
[2021-06-08] MEDS ORDERED: hydroCHLOROthiazide 25 MG TABLET PO SCH (09:00)
== END 2021-06-07 18:38 ==
LOC: EMEROOARM 02:26 → 2ANU 02:26 → SUATTDRO 08:14 → 2ANU 09:07
PROVIDERS: ADMIT Internal Medicine; ATTEND Internal Medicine

== ENCOUNTER 2021-09-17 20:18 | Inpatient (IN) ==
[2021-09-17] MEDS ORDERED: 0.9 % Sodium Chloride 1,000 ML IVC ONE (20:52)
[2021-09-17 21:10] LABS: Basophils # 0.1 K/mcL (0.0-0.2); Basophils % 0.8 %; Eosinophils % 0.3 %; Hematocrit 45.6 % (35.3-44.9); Hemoglobin 14.6 g/dL (11.5-15.4); Lymphocytes % 16.9 %; Mean Corpuscular Hemoglobin 31.8 pg (28.0-33.3); Mean Corpuscular Volume 99.3 fL (83.0-100.0); Monocytes # 2.1 K/mcL (0.0-1.3); Monocytes % 17.8 %; Neutrophils # 7.5 K/mcL (1.6-8.9); Nucleated Red Blood Cells 0.2 /100 WBC (0); Platelet Count 189 K/mcL (140-400); Red Blood Count 4.59 M/mcL (3.82-4.97); Red Cell Distribution Width 13.5 % (11.5-14.5); Segmented Neutrophils % 62.2 %
[2021-09-17 21:18] LABS: INR 1.2; Prothrombin Time 13.8 Seconds (9.4-12.1)
[2021-09-17 21:20] LABS: Activated Partial Thrombo Time 28.3 Seconds (26.0-36.0)
[2021-09-17 22:18] LABS: Bilirubin,Urine Negative (Negative); Blood,Urine Negative (Negative); Clarity,Urine Turbid (Clear); Color,Urine Dark-Yellow (Yellow); Glucose,Urine (UA) Normal (Normal); Hyaline Casts,Urine Moderate per lpf (None Seen); Ketones,Urine 10 mg/dL (Negative); Leukocyte Esterase,Urine Negative (Negative); Mucus,Urine Few per lpf (None-Few); Nitrite,Urine Negative (Negative); PH,Urine 5.5 pH Units (5.0-8.0); Protein,Urine 50 mg/dL (Neg-Trace); Specific Gravity,Urine 1.028 (1.010-1.025); WBC,Urine 0-3 per hpf (0-3)
[2021-09-17 22:22] LABS: Troponin I 0.31 ng/mL (< 0.04)
[2021-09-17] MEDS ORDERED: *HR* Heparin 5,000 UNIT/ML VIAL IVP ONE (22:44)
[2021-09-17] MEDS ORDERED: *HR* Heparin 5,000 UNIT/ML VIAL IVP PRN ×2 (22:44)
[2021-09-17 23:10] LABS: Amphetamine Screen,Urine Negative ng/mL (Cutoff=1000); Barbiturate Screen,Urine Negative ng/mL (Cutoff=200)
[2021-09-17 23:11] LABS: Benzodiazepines Screen,Urine Negative ng/mL (Cutoff=300); Cannabinoid Screen,Urine Negative ng/mL (Cutoff = 50); Cocaine Screen,Urine Negative ng/mL (Cutoff= 300); Opiate Screen,Urine Negative ng/mL (Cutoff=300); Phencyclidine Screen,Urine Negative ng/mL (Cutoff=25)
[2021-09-17] MEDS: Heparin 25,000UNIT/250ML 1/2NS 25,000 UNIT/250 ML IV.SOLN IVC SCH (23:13)
[2021-09-17 23:14] LABS: Chloride 102 mEq/L (98-107); Potassium 3.4 mEq/L (3.5-5.1); Sodium 140 mEq/L (136-145)
[2021-09-17 23:15] LABS: Alanine Aminotransferase 31 Units/L (7-52); Albumin 3.5 g/dL (3.5-5.7); Alkaline Phosphatase 238 Units/L (34-104); Aspartate Amino Transferase 73 Units/L (13-39); BUN/Creatinine Ratio 16 (6-26); Bilirubin,Direct 0.3 mg/dL (0.0-0.2); Bilirubin,Indirect 0.4 mg/dL (0.0-1.0); Bilirubin,Total 0.7 mg/dL (0.3-1.0); Blood Urea Nitrogen 22 mg/dL (6-20); Calcium 11.2 mg/dL (8.6-10.3); Carbon Dioxide 21 mEq/L (23-29); Globulin 3.6 g/dL (2.4-3.5); Glucose 95 mg/dL (70-105); Osmolality,Calculated 293 (280-300); Total Protein 7.1 g/dL (6.4-8.9); eGFR For African Americans 48 (> 60); eGFR For Non-African Americans 39 (> 60)
[2021-09-17] MEDS ORDERED: *HR* LORazepam 2 MG/ML VIAL IVP ONE (23:15)
[2021-09-17 23:57] LABS: Creatine Kinase 2575 Units/L (30-223); Ethanol < 10 mg/dL (Less than 10)
[2021-09-18] MEDS ORDERED: *HR* LORazepam 2 MG/ML VIAL IVP ONE ×2 (00:07→01:59)
[2021-09-18] MEDS ORDERED: *HR* LORazepam 2 MG/ML VIAL ONE (00:08)
[2021-09-18] MEDS ORDERED: *HR* Metoprolol 5 MG/5 ML VIAL IVP ONE ×2 (00:08)
[2021-09-18] MEDS ORDERED: Ondansetron 4 MG/2 ML VIAL IVP PRN (00:21)
[2021-09-18] MEDS ORDERED: Naloxone 0.4 MG/ML INJ IVP PRN (00:21)
[2021-09-18] MEDS ORDERED: Acetaminophen IV 1,000 MG/100 ML BAG IVPB ONE (02:29)
[2021-09-18] MEDS ORDERED: Perflutren Lipid Microsphere 1.3 ML in 0.9 % Sodium Chloride 8.7 ML IVP PRN (02:52)
[2021-09-18 03:25] LABS: Basophils # 0.1 K/mcL (0.0-0.2); Basophils % 0.4 %; Eosinophils % 0.1 %; Hematocrit 38.9 % (35.3-44.9); Immature Granulocytes % 1.6 % (0-4); Lymphocytes # 1.9 K/mcL (0.6-4.6); Lymphocytes % 15.7 %; Mean Corpuscular HGB Conc 33.2 g/dL (31.6-35.5); Mean Corpuscular Hemoglobin 32.8 pg (28.0-33.3); Mean Platelet Volume 9.8 fL (9.4-12.4); Monocytes # 1.8 K/mcL (0.0-1.3); Monocytes % 15.2 %; Neutrophils # 8.1 K/mcL (1.6-8.9); Platelet Count 145 K/mcL (140-400); Red Blood Count 3.93 M/mcL (3.82-4.97); Red Cell Distribution Width 13.5 % (11.5-14.5)
[2021-09-18 03:26] LABS: Hemoglobin 12.9 g/dL (11.5-15.4)
[2021-09-18 03:30] LABS: Troponin I 0.45 ng/mL (< 0.04)
[2021-09-18 03:41] LABS: Alanine Aminotransferase 30 Units/L (7-52); Albumin 2.9 g/dL (3.5-5.7); Alkaline Phosphatase 190 Units/L (34-104); Aspartate Amino Transferase 100 Units/L (13-39); BUN/Creatinine Ratio 22 (6-26); Bilirubin,Total 0.7 mg/dL (0.3-1.0); Blood Urea Nitrogen 24 mg/dL (6-20); Calcium 10.2 mg/dL (8.6-10.3); Carbon Dioxide 24 mEq/L (23-29); Chloride 109 mEq/L (98-107); Glucose 96 mg/dL (70-105); Magnesium 1.8 mg/dL (1.6-2.6); Osmolality,Calculated 300 (280-300); Phosphorous 1.5 mg/dL (2.7-4.5); Potassium 3.8 mEq/L (3.5-5.1); Sodium 143 mEq/L (136-145); Total Protein 5.9 g/dL (6.4-8.9); eGFR For African Americans > 60 (> 60); eGFR For Non-African Americans 53 (> 60)
[2021-09-18] MEDS ORDERED: Dexamethasone Sodium Phos/PF 10 MG/ML VIAL IVP ONE (04:00)
[2021-09-18] MEDS ORDERED: Acyclovir 1,000 MG/20 ML VIAL IVPB SCH (04:00)
[2021-09-18] MEDS: cefTRIAXone 2,000 MG in 0.9 % Sodium Chloride Mini Bag 100 ML IVPB SCH ×2 (05:11→16:17)
[2021-09-18] MEDS ORDERED: D5% in Water 1,000 ML IVC PRN (05:28)
[2021-09-18] MEDS ORDERED: Dextrose Gel 15 GM/37.5 ML TUBE PO PRN ×2 (05:28)
[2021-09-18] MEDS ORDERED: *HR* Dextrose 50 % in Water (Syg) 50 ML SYRINGE IVP PRN (05:28)
[2021-09-18] MEDS ORDERED: 0.9 % Sodium Chloride 1,000 ML IVC ONE (05:31)
[2021-09-18] MEDS: Vancomycin 1,500 MG/265 ML IV.SOLN IVPB SCH (06:19)
[2021-09-18] MEDS: Insulin LISPRO 300 UNITS/3 ML VIAL SUBQ SCH ×3 (06:30→18:14)
[2021-09-18] MEDS: Acyclovir 500 MG in D5% in Water 100 ML IVPB SCH ×2 (08:11→16:14)
[2021-09-18 11:30] LABS: Estimated Average Glucose 120 mg/dl; Hemoglobin A1C 5.8 %
[2021-09-18 12:08] LABS: Chol/HDL Ratio 3.9 (0-4.9); Troponin I 0.2 ng/mL (< 0.04)
[2021-09-18 16:33] LABS: Red Blood Cell,CSF 13000 RBC/mcL
[2021-09-18 17:21] LABS: Appearance,CSF Bloody (Clear); Basophils,CSF 0 %; Eosinophils,CSF 0 %
[2021-09-18 17:40] LABS: Glucose,CSF 82 mg/dL (40-70); Total Protein,CSF 40 mg/dL (15-45)
[2021-09-18] MEDS: Valproic Acid INJ 500 MG in 0.9 % Sodium Chloride 100 ML IVPB SCH (20:19)
[2021-09-18 22:22] LABS: Influenza A PCR Negative (Negative); Influenza B PCR Negative (Negative); Resp. Syncytial Virus PCR Negative (Negative)
[2021-09-18 22:30] LABS: SARS-CoV-2 by PCR (In House) Negative (Negative)
[2021-09-19] MEDS: Insulin LISPRO 300 UNITS/3 ML VIAL SUBQ SCH ×4 (00:28→18:22)
[2021-09-19] MEDS: Valproic Acid INJ 500 MG in 0.9 % Sodium Chloride 100 ML IVPB SCH ×3 (02:36→17:00)
[2021-09-19] MEDS: cefTRIAXone 2,000 MG in 0.9 % Sodium Chloride Mini Bag 100 ML IVPB SCH ×2 (04:52→14:45)
[2021-09-19] MEDS: Vancomycin 1,500 MG/265 ML IV.SOLN IVPB SCH (05:34)
[2021-09-19] MEDS: Heparin 25,000UNIT/250ML 1/2NS 25,000 UNIT/250 ML IV.SOLN IVC SCH (12:38)
[2021-09-19 13:30] LABS: Basophils % 0.3 %; Eosinophils % 0.1 %; Hematocrit 36.9 % (35.3-44.9); Hemoglobin 11.8 g/dL (11.5-15.4); Immature Granulocytes % 1.5 % (0-4); Lymphocytes % 15.9 %; Monocytes # 1.4 K/mcL (0.0-1.3); Monocytes % 11.7 %; Neutrophils # 8.7 K/mcL (1.6-8.9); Platelet Count 134 K/mcL (140-400); Red Blood Count 3.69 M/mcL (3.82-4.97); Red Cell Distribution Width 13.6 % (11.5-14.5); Segmented Neutrophils % 70.5 %; White Blood Count 12.3 K/mcL (4.3-11.1)
[2021-09-19 13:45] LABS: Heparin anti-factor XA UFH 0.46 IU/mL (0.30-0.70)
[2021-09-19 14:16] LABS: BUN/Creatinine Ratio 40 (6-26); Blood Urea Nitrogen 23 mg/dL (6-20); Calcium 7.6 mg/dL (8.6-10.3); Carbon Dioxide 24 mEq/L (23-29); Chloride 116 mEq/L (98-107); Glucose 98 mg/dL (70-105); Osmolality,Calculated 304 (280-300); Potassium 2.9 mEq/L (3.5-5.1); Sodium 145 mEq/L (136-145); eGFR For African Americans > 60 (> 60); eGFR For Non-African Americans > 60 (> 60)
[2021-09-19] MEDS: 0.9 % Sodium Chloride 1,000 ML IVC SCH (14:45)
[2021-09-19 15:15] LABS: Creatine Kinase 2709 Units/L (30-223)
[2021-09-20] MEDS: 0.9 % Sodium Chloride 1,000 ML IVC SCH ×3 (01:02→20:15)
[2021-09-20] MEDS: Valproic Acid INJ 500 MG in 0.9 % Sodium Chloride 100 ML IVPB SCH ×2 (02:37→09:29)
[2021-09-20] MEDS: cefTRIAXone 2,000 MG in 0.9 % Sodium Chloride Mini Bag 100 ML IVPB SCH ×2 (04:01→16:17)
[2021-09-20] MEDS: *HR* Enoxaparin 40 MG/0.4 ML SYRINGE SQ SCH (05:54)
[2021-09-20] MEDS: Vancomycin 1,500 MG/265 ML IV.SOLN IVPB SCH ×2 (07:59→17:21)
[2021-09-20] MEDS: Vancomycin Oral Soln 125 MG/2.5 ML UDC PO SCH ×4 (08:00→16:18)
[2021-09-20] MEDS ORDERED: Aspirin 81 MG TAB.CHEW PO SCH (09:00)
[2021-09-20 09:56] LABS: Basophils # 0.1 K/mcL (0.0-0.2); Basophils % 0.7 %; Eosinophils # 0.1 K/mcL (0.0-0.6); Eosinophils % 0.9 %; Hematocrit 38.4 % (35.3-44.9); Hemoglobin 12.3 g/dL (11.5-15.4); Immature Granulocytes % 2.3 % (0-4); Lymphocytes # 2.7 K/mcL (0.6-4.6); Lymphocytes % 24.5 %; Mean Corpuscular Hemoglobin 32.1 pg (28.0-33.3); Mean Corpuscular Volume 100.3 fL (83.0-100.0); Monocytes # 1.5 K/mcL (0.0-1.3); Monocytes % 13.6 %; Neutrophils # 6.4 K/mcL (1.6-8.9); Nucleated Red Blood Cells 0.2 /100 WBC (0); Platelet Count 166 K/mcL (140-400); Red Blood Count 3.83 M/mcL (3.82-4.97); Red Cell Distribution Width 14.1 % (11.5-14.5); White Blood Count 11.1 K/mcL (4.3-11.1)
[2021-09-20 09:58] LABS: BUN/Creatinine Ratio 27 (6-26); Blood Urea Nitrogen 15 mg/dL (6-20); Calcium 8.2 mg/dL (8.6-10.3); Carbon Dioxide 27 mEq/L (23-29); Chloride 113 mEq/L (98-107); Glucose 102 mg/dL (70-105); Osmolality,Calculated 299 (280-300); Potassium 3.2 mEq/L (3.5-5.1); Sodium 144 mEq/L (136-145); eGFR For African Americans > 60 (> 60); eGFR For Non-African Americans > 60 (> 60)
[2021-09-20 16:00] LABS: Magnesium 1.6 mg/dL (1.6-2.6)
[2021-09-20] MEDS: Divalproex (12 HR) 500 MG TABLET PO SCH (20:05)
[2021-09-21] MEDS: cefTRIAXone 2,000 MG in 0.9 % Sodium Chloride Mini Bag 100 ML IVPB SCH ×2 (04:44→18:04)
[2021-09-21] MEDS: *HR* Enoxaparin 40 MG/0.4 ML SYRINGE SQ SCH (04:58)
[2021-09-21] MEDS: Vancomycin Oral Soln 125 MG/2.5 ML UDC PO SCH ×5 (05:18→21:17)
[2021-09-21] MEDS: 0.9 % Sodium Chloride 1,000 ML IVC SCH (06:33)
[2021-09-21] MEDS: Vancomycin 1,500 MG/265 ML IV.SOLN IVPB SCH ×2 (06:40→21:12)
[2021-09-21 09:56] LABS: BUN/Creatinine Ratio 19 (6-26); Blood Urea Nitrogen 9 mg/dL (6-20); Calcium 7.7 mg/dL (8.6-10.3); Carbon Dioxide 25 mEq/L (23-29); Chloride 112 mEq/L (98-107); Creatine Kinase 1824 Units/L (30-223); Glucose 75 mg/dL (70-105); Osmolality,Calculated 293 (280-300); Potassium 3.4 mEq/L (3.5-5.1); Sodium 143 mEq/L (136-145); eGFR For African Americans > 60 (> 60); eGFR For Non-African Americans > 60 (> 60)
[2021-09-21] MEDS: Divalproex (12 HR) 500 MG TABLET PO SCH ×2 (10:06→21:17)
[2021-09-21 10:37] LABS: Borrelia burgdorferi Abs CSF 0.08 LIV (<=0.99)
[2021-09-21 10:40] LABS: Basophils # 0.1 K/mcL (0.0-0.2); Basophils % 0.9 %; Eosinophils # 0.2 K/mcL (0.0-0.6); Eosinophils % 1.9 %; Hematocrit 37.4 % (35.3-44.9); Hemoglobin 12.3 g/dL (11.5-15.4); Immature Granulocytes % 3.2 % (0-4); Lymphocytes # 3.4 K/mcL (0.6-4.6); Lymphocytes % 33.4 %; Mean Corpuscular HGB Conc 32.9 g/dL (31.6-35.5); Mean Corpuscular Hemoglobin 33.5 pg (28.0-33.3); Mean Corpuscular Volume 101.9 fL (83.0-100.0); Monocytes # 1.3 K/mcL (0.0-1.3); Monocytes % 13.1 %; Neutrophils # 4.8 K/mcL (1.6-8.9); Nucleated Red Blood Cells 0.7 /100 WBC (0); Platelet Count 155 K/mcL (140-400); Red Blood Count 3.67 M/mcL (3.82-4.97); Red Cell Distribution Width 14.3 % (11.5-14.5); Segmented Neutrophils % 47.5 %; White Blood Count 10.1 K/mcL (4.3-11.1)
[2021-09-21 11:11] LABS: Magnesium 1.5 mg/dL (1.6-2.6)
[2021-09-21] MEDS ORDERED: 0.9 % Sodium Chloride 1,000 ML IVC SCH (15:52)
[2021-09-21] MEDS ORDERED: Potassium Chloride Elixir 20 MEQ/15 ML UDC PO ONE (16:26)
[2021-09-22 05:25] LABS: BUN/Creatinine Ratio 13 (6-26); Blood Urea Nitrogen 6 mg/dL (6-20); Calcium 7.9 mg/dL (8.6-10.3); Carbon Dioxide 26 mEq/L (23-29); Chloride 112 mEq/L (98-107); Glucose 107 mg/dL (70-105); Magnesium 1.8 mg/dL (1.6-2.6); Osmolality,Calculated 292 (280-300); Potassium 3.8 mEq/L (3.5-5.1); Sodium 142 mEq/L (136-145); eGFR For African Americans > 60 (> 60); eGFR For Non-African Americans > 60 (> 60)
[2021-09-22 05:31] LABS: Basophils % 1.1 %; Eosinophils % 1.6 %; Hematocrit 38.3 % (35.3-44.9); Hemoglobin 12.1 g/dL (11.5-15.4); Immature Granulocytes % 3.8 % (0-4); Lymphocytes % 31.3 %; Mean Corpuscular HGB Conc 31.6 g/dL (31.6-35.5); Mean Corpuscular Hemoglobin 31.8 pg (28.0-33.3); Mean Corpuscular Volume 100.5 fL (83.0-100.0); Monocytes % 14.5 %; Platelet Count 163 K/mcL (140-400); Red Blood Count 3.81 M/mcL (3.82-4.97); Red Cell Distribution Width 14.3 % (11.5-14.5); Segmented Neutrophils % 47.7 %; White Blood Count 8.8 K/mcL (4.3-11.1)
[2021-09-22 05:32] LABS: Basophils # 0.1 K/mcL (0.0-0.2); Eosinophils # 0.1 K/mcL (0.0-0.6); Lymphocytes # 2.8 K/mcL (0.6-4.6); Monocytes # 1.3 K/mcL (0.0-1.3); Neutrophils # 4.2 K/mcL (1.6-8.9); Nucleated Red Blood Cells 0.6 /100 WBC (0)
[2021-09-22] MEDS: *HR* Enoxaparin 40 MG/0.4 ML SYRINGE SQ SCH (05:35)
[2021-09-22] MEDS: cefTRIAXone 2,000 MG in 0.9 % Sodium Chloride Mini Bag 100 ML IVPB SCH ×2 (05:35→16:19)
[2021-09-22] MEDS: Vancomycin 1,500 MG/265 ML IV.SOLN IVPB SCH ×2 (06:25→20:24)
[2021-09-22] MEDS ORDERED: Isovue-370 500 ML BOTTLE IVP ONE (07:13)
[2021-09-22 07:42] LABS: Creatine Kinase 1293 Units/L (30-223)
[2021-09-22 10:01] LABS: HSV 2 Glycoprotein G IgG CSF 0.02 IV (<=0.89)
[2021-09-22 10:07] LABS: Enterovirus RNA Qual (PCR) NOT DETECTED
[2021-09-22] MEDS ORDERED: Furosemide 20 MG/2 ML VIAL IVP ONE (11:04)
[2021-09-22] MEDS: Vancomycin Oral Soln 125 MG/2.5 ML UDC PO SCH ×4 (11:39→20:29)
[2021-09-22] MEDS: Divalproex (12 HR) 500 MG TABLET PO SCH ×2 (11:41→20:29)
[2021-09-23] MEDS: cefTRIAXone 2,000 MG in 0.9 % Sodium Chloride Mini Bag 100 ML IVPB SCH (04:58)
[2021-09-23] MEDS: *HR* Enoxaparin 40 MG/0.4 ML SYRINGE SQ SCH (05:03)
[2021-09-23] MEDS: Divalproex (12 HR) 500 MG TABLET PO SCH ×2 (08:52→22:36)
[2021-09-23] MEDS: Vancomycin 1,500 MG/265 ML IV.SOLN IVPB SCH (08:53)
[2021-09-23] MEDS: Vancomycin Oral Soln 125 MG/2.5 ML UDC PO SCH ×2 (08:53→14:32)
[2021-09-23] MEDS ORDERED: Furosemide 20 MG/2 ML VIAL IVP ONE (13:48)
[2021-09-23 19:38] LABS: Thyroid Stimulating Hormone 2.032 mcIU/mL (0.340-5.600)
[2021-09-24] MEDS: *HR* Enoxaparin 40 MG/0.4 ML SYRINGE SQ SCH (05:51)
[2021-09-24 08:06] VITALS: TEMP 98.6
[2021-09-24] MEDS: Divalproex (12 HR) 500 MG TABLET PO SCH (08:07)
[2021-09-24 11:29] LABS: Basophils # 0.1 K/mcL (0.0-0.2); Basophils % 1.2 %; Eosinophils # 0.2 K/mcL (0.0-0.6); Eosinophils % 2.7 %; Hematocrit 39.3 % (35.3-44.9); Hemoglobin 12.5 g/dL (11.5-15.4); Immature Granulocytes % 3.1 % (0-4); Lymphocytes # 3.1 K/mcL (0.6-4.6); Lymphocytes % 38.5 %; Mean Corpuscular HGB Conc 31.8 g/dL (31.6-35.5); Mean Corpuscular Hemoglobin 32.1 pg (28.0-33.3); Mean Corpuscular Volume 100.8 fL (83.0-100.0); Mean Platelet Volume 8.7 fL (9.4-12.4); Monocytes # 1.2 K/mcL (0.0-1.3); Monocytes % 14.4 %; Neutrophils # 3.3 K/mcL (1.6-8.9); Nucleated Red Blood Cells 0.6 /100 WBC (0); Platelet Count 155 K/mcL (140-400); Red Cell Distribution Width 14.9 % (11.5-14.5); Segmented Neutrophils % 40.1 %; White Blood Count 8.1 K/mcL (4.3-11.1)
[2021-09-24 11:44] VITALS: BP 151/68; PULSE 100; O2SAT 95
[2021-09-24 12:13] LABS: BUN/Creatinine Ratio 19 (6-26); Blood Urea Nitrogen 10 mg/dL (6-20); Calcium 8.8 mg/dL (8.6-10.3); Carbon Dioxide 29 mEq/L (23-29); Chloride 106 mEq/L (98-107); Glucose 88 mg/dL (70-105); Osmolality,Calculated 288 (280-300); Potassium 3.9 mEq/L (3.5-5.1); Sodium 140 mEq/L (136-145); eGFR For African Americans > 60 (> 60); eGFR For Non-African Americans > 60 (> 60)
== END 2021-09-24 17:16 | DRG 70 ==
LOC: EMEROOARM 20:18 → 2NENU 20:18 → SUATTDRO 23:04 → 2NENU 23:53 → SUATTDRO 09-18 13:38
PROVIDERS: ADMIT Family Medicine; ATTEND Internal Medicine